=== PATIENT | male | born 1955 | race Caucasian/White ===

== ENCOUNTER 2023-02-18 12:48 | Outpatient (CLI) | payer MEDICARE, SELFPAY ==
[2023-02-18] MEDS: iohexol 350 mg/mL 500 mL Btl (per mL) IV (13:20)
--- NOTE | 2023-02-18 13:30 | CT_ITS ---
WS: [id number] CT NECK TECHNIQUE: Contrast-enhanced CT of the neck with coronal and sagittal reformatted images. CLINICAL INFORMATION: R49.0 - Dysphonia COMPARISON: None. DLP: 853.[address] scans at [facility] use at least one of these dose optimization techniques: automated e xposure control; mA and/or kV adjustment per patient size (includes targeted exams where dose is matc hed to clinical indication); or iterative reconstruction. FINDINGS: Mucosal thickening in the paranasal sinuses with scattered fluid. Mucosal thickening in the sphenoid sinuses. Cavernous carotid calcification. Mastoid air cells are well aerated. Partially visualized in tracranial contents appear normal. Normal posterior nasopharynx. Parotid glands are normal. Normal de [place] garza bmandibular glands. Normal [place] tonsils. No evidence of supraglottic or glottic mass. Normal para pharyngeal fat. Thyroid gland appears normal. Moderate chronic emphysematous changes in the lung apices. Prior sterno jefferson. Dense bilateral carotid bulb calcification. Palpable marker in the area of concern in the upper chest. Deep to the palpable marker is normal-appe aring subcutaneous soft tissue. The adjacent sternoclavicular joint demonstrates advanced arthritis a nd synovial thickening. No drainable fluid collection or abscess. Prior sternotomy. Moderate spondylitic changes cervical spine. Disc space narrowing worse at C5-C6. Slight anterolisthe sis C2 on C3. No cervical lymphadenopathy. IMPRESSION: 1. Normal salivary glands. 2. No cervical lymphadenopathy. 3. Dense carotid bulb calcification. This can be further evaluated with carotid ultrasound. 4. No suspicious lesions directly deep to the palpable marker LEFT chest. However, adjacent to the m arker is the sternoclavicular joint with advanced degenerative arthritis and synovial thickening. No drainable fluid collection or abscess. 5. No other acute findings.
--- NOTE | 2023-02-18 14:00 | CT_ITS ---
WS: [id number] CT chest w con* [id number] HISTORY: R05.3 - Chronic cough TECHNIQUE: Axial imaging performed through the thorax. Coronal and sagittal reformats are submitted. All CT [facility] use at least one of these dose optimization techniques: automated exposure control; mA and/or kV adjustment per patient size (includes targeted exams where dose is mat ched to clinical indication); or iterative reconstruction. CONTRAST: Omnipaque 350; 100 mL IV. DLP: 853.40 mGy.cm COMPARISON: None available. Marker is placed along the upper LEFT thorax, inferior neck at the area of interest as directed by th e patient. There is no directly underlying mass or abnormality identified. Just inferior and medial t o the marker are mild inflammatory changes and soft tissue thickening associated with the LEFT sterno clavicular joint. This is asymmetric to the RIGHT. Lungs and central airway: Centrilobular emphysema. Peripheral interstitial cysts. Not typical distrib ution for honeycomb associated with UIP. No pulmonary mass. No pneumonia. Pleura: Normal. No pleural effusion. Heart and pericardium: Normal size heart with no pericardial effusion. Prior median sternotomy. Mediastinum and libertad: No mediastinum or hilar adenopathy. Vessels: Mild atherosclerosis aorta. Normal sized pulmonary artery. Upper abdomen: Hepatic steatosis. Cholelithiasis. LEFT adrenal mass 2.3 x 2.1 cm. Mass has been prese nt since 2005 without significant change. Osseous structures: Mild increase in thoracic kyphosis. Mild anterior wedging of several midthoracic vertebral bodies. IMPRESSION: 1. Marker is placed along the upper LEFT thorax in the area of clinical concern. There is no directly underlying abnormality. 2. Just medial and inferior to the marker is an abnormal LEFT sternoclavicular joint. Probably due to arthropathy. Asymmetric to the RIGHT SC joint. 3. Chronic emphysema. 4. Hepatic steatosis and cholelithiasis. 5. Long-term stability LEFT adrenal mass, 2.3 x 2.1 cm.
== END 2023-02-18 12:49 | disposition home or self-care (01) ==
LOC: RAD 12:49
PROVIDERS: Family Provider Family Medicine; PCP Nurse Practitioner Family; Visit Provider Nurse Practitioner Family
DX: M89.8X8 Other specified disorders of bone, other site (principal); R05.3 Chronic cough; R49.0 Dysphonia; J43.9 Emphysema, unspecified; D35.02 Benign neoplasm of left adrenal gland
CPT/HCPCS: 70491; 71260; Q9967

== ENCOUNTER 2023-02-18 12:48 | Outpatient (CLI) | payer MEDICARE, SELFPAY | END 2023-02-18 12:49 | disposition home or self-care (01) | LOC: RAD 12:49 | PROVIDERS: Family Provider Family Medicine; PCP Nurse Practitioner Family; Visit Provider Internal Medicine | DX: E55.9 Vitamin D deficiency, unspecified (principal); M25.50 Pain in unspecified joint; E11.9 Type 2 diabetes mellitus without complications; I10 Essential (primary) hypertension; Z12.5 Encounter for screening for malignant neoplasm of prostate | CPT/HCPCS: 80053; 80061; 82043; 82306; 82607; 83036; 83735; 84443; 84550; 85025; 85651; 86038; 86140; 86200; 86431; G0103 ==

== ENCOUNTER 2023-03-01 10:42 | Outpatient (CLI) | payer MEDICARE, SELFPAY ==
--- NOTE | 2023-03-01 11:15 | USCV_ITS ---
Isis Cristiana Age: 67 Gender: M : 1955 Exam Date: 03/01/2023 10:56 Ordering Phys: Violet Noel BULB PLANTER BULB PLANTER Technologist: CT Exam [place] [facility] [place] Indication: syncope,pad Risk Factors: Previous Vascular Surgery: Right Brachial BP: / Left Brachial BP: / Right Left Velocity (cm/s) Spectral Plaque Velocity (cm/s) Spectral Plaque Syst/Diast Broadening Syst/Diast Broadening 75.40/ 17.60 Prox CCA 73.90 / 16.50 78.85/ 17.60 Mid CCA 76.90 / 19.20 68.05/ 16.30 Distal CCA 68.40 / 16.30 62.15/ 16.05 Prox ICA 71.60 / 17.40 65.40/ 19.80 Mid ICA 46.20 / 18.00 49.00/ 14.80 Distal ICA 45.10 / 19.40 123.65 ECA 174.20 0.91 ICA/CCA 0.93 Antegrade Vertebral Antegrade 38.80/ 11.80 cm/s 34.20/ 12.80 cm/s Bi Subclavian Bi 95.20 144.5 0 CONCLUSIONS Right ICA stenosis <50%. Moderate atheromatous plaque right carotid bulb/ICA. Left ICA stenosis <50%. Mild atheromatous plaque left carotid bulb/ICA. Intimal thickening in the common carotid arteries and internal carotid arteries bilaterally. Normal antegrade Doppler flow noted in the left vertebral artery. Normal antegrade Doppler flow noted in the right vertebral artery. Kennedy Sanders MD (Electronically Signed) Final Date: 01 March 2023 15:50 S
== END 2023-03-01 10:43 | disposition home or self-care (01) ==
LOC: RAD 10:42
PROVIDERS: Family Provider Family Medicine; PCP Nurse Practitioner Family; Visit Provider Nurse Practitioner Family
DX: R09.89 Other specified symptoms and signs involving the circulatory and respiratory systems (principal); R55 Syncope and collapse; I77.9 Disorder of arteries and arterioles, unspecified; I65.23 Occlusion and stenosis of bilateral carotid arteries; I73.9 Peripheral vascular disease, unspecified
CPT/HCPCS: 93880

== ENCOUNTER 2023-03-17 09:45 | Outpatient (CLI) | payer MEDICARE, SELFPAY ==
--- NOTE | 2023-03-17 09:52 | XR_ITS ---
WS: [email or web address] Left shoulder, 2 views, 03/17/2023 Clinical Data: M25.511 - Pain in left shoulder Comparison: None. Findings: No fractures or dislocations are seen. The AC joint shows moderate osteoarthritis with narrowing and periarticular calcification. There is minimal irregularity of the lesser tuberosity and adjacent yoly oid articular surface. The adjacent left clavicle, left scapula and ribs are normal. The soft tissues are unremarkable. 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
--- NOTE | 2023-03-17 09:52 | XR_ITS ---
WS: [email or web address] Left hip, AP and frog-leg views, 03/17/2023 Clinical Data: M25.552 - Pain in left hip Comparison: None. Findings: The left hip arthroplasty is in good position. No periprosthetic fractures or loosening is seen. Ther e are vascular calcifications. Impression: Left hip arthroplasty.
--- NOTE | 2023-03-17 09:52 | XR_ITS ---
WS: [email or web address] Left knee, 3 views, 03/17/2023 Clinical Data: M25.562 - Pain in left knee Comparison: None. Findings: No fractures or dislocations are seen. Medial joint compartment narrowing is present with spurring of the medial femoral condyle and medial tibial plateau. There is a spur of the lateral femoral condyle . The posterior patella shows spurring. there are vascular calcifications . Impression: Mild osteoarthritis of the left knee Kellgren-Red Classification: grade 2 (minimal): definite osteophytes and possible joint space na rrowing
--- NOTE | 2023-03-17 09:52 | XR_ITS ---
WS: [email or web address] Right shoulder, 2 views, 03/17/2023 Clinical Data: M25.511 - Pain in right shoulder Comparison: None. Findings: No fractures or dislocations are seen. There is osteoarthritic narrowing and spurring of the right AC joint. There is irregularity of the right glenohumeral joint involving the greater tuberosity lesser tuberosity and glenoid rim. The adjacent right clavicle, right scapula and ribs are normal. The soft tissues are unremarkable. 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
== END 2023-03-17 09:46 | disposition home or self-care (01) ==
PROVIDERS: Family Provider Family Medicine; PCP Nurse Practitioner Family; Visit Provider Nurse Practitioner Family
DX: M19.012 Primary osteoarthritis, left shoulder (principal); M19.011 Primary osteoarthritis, right shoulder; M17.12 Unilateral primary osteoarthritis, left knee; M25.552 Pain in left hip; G89.29 Other chronic pain; M25.511 Pain in right shoulder; M25.512 Pain in left shoulder; Z96.642 Presence of left artificial hip joint
CPT/HCPCS: 73030; 73502; 73562

== ENCOUNTER → 2023-04-19 09:35 | Outpatient (BNVA) | payer MEDICARE, SELFPAY | PROVIDERS: Family Provider Family Medicine; PCP Nurse Practitioner Family; Referring Provider Nurse Practitioner Family; Visit Provider Physician Assistant | DX: M19.011 Primary osteoarthritis, right shoulder (principal); M19.012 Primary osteoarthritis, left shoulder; M75.41 Impingement syndrome of right shoulder; M75.42 Impingement syndrome of left shoulder | CPT/HCPCS: 20610; 99203; J3301 ==

== ENCOUNTER → 2023-06-13 09:45 | Outpatient (BNVA) | payer MEDICARE, SELFPAY | PROVIDERS: Family Provider Family Medicine; PCP Nurse Practitioner Family; Visit Provider Nurse Practitioner Family | DX: E11.9 Type 2 diabetes mellitus without complications (principal); E55.9 Vitamin D deficiency, unspecified | CPT/HCPCS: 80053; 80061; 81000; 82306; 82607; 83036; 83735; 84443; 85025 ==

== ENCOUNTER → 2023-06-14 09:49 | Outpatient (BNVA) | payer MEDICARE, SELFPAY | PROVIDERS: Family Provider Family Medicine; PCP Nurse Practitioner Family; Visit Provider Physician Assistant | DX: M19.011 Primary osteoarthritis, right shoulder; M19.012 Primary osteoarthritis, left shoulder; M75.42 Impingement syndrome of left shoulder | CPT/HCPCS: 99213 ==

== ENCOUNTER 2023-07-18 08:46 | Outpatient (CLI) | payer MEDICARE, SELFPAY ==
--- NOTE | 2023-07-18 09:30 | MR_ITS ---
WS: [email or web address] MRI LEFT SHOULDER NONCONTRAST TECHNIQUE: Sagittal T2, coronal T1, T2 and proton density imaging. Axial gradient PDE imaging. CLINICAL INFORMATION: left shoulder injury and pain COMPARISON: None. FINDINGS: Advanced degenerative arthritis of the AC joint with fluid and edema. AC joint effusion. Loss of the subacromial space. Small amount of subacromial subdeltoid fluid. Complete high-grade tear of the dist al supraspinatus with retraction measuring 1.8 cm. Associated tear involving the anterior fibers of t he infraspinatus. Chronic thinning of the supraspinatus and infraspinatus. Teres minor appears intact. Chronic thinning and tendinopathy involving the subscapularis tendon. Tin y remnant biceps tendon in the bicipital groove likely due to chronic partial tear. Tiny intra-articu lar biceps tendon difficult to visualize likely due to chronic tear. Advanced degenerative narrowing of the glenohumeral articulation with degenerative fraying of the glenoid labrum. Small joint effusio n. IMPRESSION: 1. Advanced degenerative arthritis AC joint with joint effusion and loss of the subacromial space. I mpingement distal supraspinatus. 2. High-grade tear with retraction involving the supraspinatus with associated tear involving the an terior fibers of the infraspinatus. Chronic thinning of the supraspinatus and infraspinatus. 3. Chronic thinning of the subscapularis tendon with tendinopathy. 4. Tiny remnant biceps tendon in the bicipital groove likely due to chronic tear. 5. Intra-articular biceps tendon poorly visualized likely chronically torn. 6. Advanced degenerative narrowing of the glenohumeral to collation with small joint effusion.
== END 2023-07-18 08:47 | disposition home or self-care (01) ==
LOC: RAD 08:47
PROVIDERS: Family Provider Family Medicine; PCP Nurse Practitioner Family; Visit Provider Physician Assistant
DX: S49.92XA Unspecified injury of left shoulder and upper arm, initial encounter (principal); M19.011 Primary osteoarthritis, right shoulder; M19.012 Primary osteoarthritis, left shoulder; M75.102 Unspecified rotator cuff tear or rupture of left shoulder, not specified as traumatic
CPT/HCPCS: 73221

== ENCOUNTER 2023-07-26 16:04 | Emergency (ER) | payer MEDICARE, SELFPAY ==
[2023-07-26 16:09] VITALS: BP 149/73; PULSE 81; RESP 16; TEMP 36.8; O2SAT 97
--- NOTE | 2023-07-26 17:19 | ED_ITS ---
Documented by User: [email or web address] Pineda 07/26/23 18:14 HPI - Male Genitourinary 2 General: Chief complaint: Urogenital-Male Stated complaint: blood in urine Time Seen by Provider: 07/26/23 17:10 Source: patient Mode of arrival: ambulatory Limitations: no limitations History of Present Illness: This patient is a 68-year-old male presenting to the emergency department complaining of penile pain onset just prior to arrival. Patient notes he was working outside and knelt down to pee, when he pulled out his penis he notes a sudden onset of pain to the distal urethra, which was subsequently followed by a burst of bloody urine after pushing to urinate. He states that the pain was severe at the time, and is still irritated but is much less severe. He denies history of recent kidney stones but states that 1 time in the past he might have been diagnosed with renal stones. He is denying any fever, nausea or vomiting, abdominal pain, flank pain, or any other symptoms at this time. He states that he has urinated twice since and it has been painless and without gross blood. MD Complaint: dysuria and other (Penis pain, hematuria) Onset (ago): hour(s) Duration: now resolved Location: penis Quality: sharp and stabbing Associated symptoms: Reports dysuria and hematuria; Deny nausea or vomiting Related Data: Sexually active: Yes Review of Systems 2 General: Reports: 10 or more systems reviewed and unremarkable except in HPI and below Const: Denies: fever(s), chills, change in appetite, change in weight or diaphoresis ENMT: Denies: throat pain or hoarseness Card: Denies: chest pain, palpitations or lightheadedness Resp: Denies: dyspnea, productive cough or wheezing GI: Denies: abdominal pain, nausea, vomiting, diarrhea, constipation, bloating, change in stool character or hematochezia : Reports: dysuria, hematuria and genital pain; Denies: flank pain, difficulty urinating, urinary frequency or urinary urgency Musc: Denies: neck pain or back pain Skin/Breast: Denies: rash or new lesions Neuro: Denies: headache(s) or dizziness PFSH ED 2 PFSH: Medical History Fatty liver Vitamin D deficiency History of melanoma 2022 Arthropathy of left hip Obstructive sleep apnea Hypertension Type 2 diabetes mellitus Surgical History History of colonoscopy 04/07/21 6mm polyp and diverticulosis S/P triple vessel bypass 2016 Family History Grandmother Rheumatoid arthritis Mother Rheumatoid arthritis Father Lung cancer Social History Smoking and tobacco/nicotine status: current every day tobacco/nicotine user cigarettes Packs smoked per day: 0.5 Years cigarettes smoked: 50 Alcohol intake: current Alcohol intake frequency: 3 or more drinks per day Alcohol type: beer Substance/Drug Use: never Adopted: No Lives independently: Yes Household members: spouse Marital status: Physical Exam 2 Const: COMMON NORMALS: no acute distress, average body habitus, patient oriented x3, no limitations, healthy appearing, alert and well nourished G ENERAL APPEARANCE: cooperative and comfortable ORIENTATION/CONSCIOUSNESS: Yes awake HENMT: COMMON NORMALS: normocephalic, atraumatic, hearing grossly normal bilaterally, external ears normal, Normal external nose present, Normal nasal mucous membranes and turbinates present and moist oral mucous membranes HEAD & SCALP: normocephalic and atraumatic NOSE: Normal external nose present and Normal nasal mucous membranes and turbinates present EXTERNAL EAR: Yes external ears normal Eye: COMMON NORMALS: Equal, round and reactive pupils present, EOMs intact bilaterally, conjunctivae normal and normal visual holcomb by confrontation C ONJUNCTIVA: Yes conjunctivae normal PUPIL: Yes Equal, round and reactive pupils present Neck/C-Spine: COMMON NORMALS: full ROM, supple, no meningeal signs and no JVD Resp: COMMON NORMALS: normal respiratory effort, No retractions, No use of accessory muscles and clear to auscultation bilaterally AUSCULTATION: clear to auscultation bilaterally, no crackles, no rales, no rhonchi and no wheezes Cardio: COMMON NORMALS: no JVD, regular rate, regular rhythm, S1 normal heart sound present, S2 normal heart sound present, No gallops present (Cardio), No clicks present (Cardio), No murmurs present (Cardio), No rub (Cardio) and Peripheral pulses 2+ throughout RATE: regular rate RHYTHM: regular rhythm HEART SOUNDS: S1 normal heart sound present and S2 normal heart sound present PERIPHERAL PULSES: Peripheral pulses 2+ throughout GI: COMMON NORMALS: Normal to inspection, nondistended, normoactive bowel sounds present, Soft to palpation, non-tender, No hepatosplenomegaly present and no masses AUSCULTATION: Yes normoactive bowel sounds PALPATION: Yes Soft to palpation, No Guarding due to palpation present (GI), No Rigid due to palpation and Yes No hepatosplenomegaly present RECTAL EXAM: Yes deferred : COMMON NORMALS: Yes no CVA tenderness BLADDER/KIDNEY EXAM: Yes no CVA tenderness PENIS: normal penis, circumcised and other (No abnormal findings of head of penis or urethra) Back/Pelvis: COMMON NORMALS: no CVA tenderness Extremity: COMMON NORMALS: normal to inspection and full ROM Neuro: COMMON NORMALS: patient oriented x3, moves all extremities, no focal motor deficits and no sensory deficits noted SENSORIUM/ORIENTATION: Yes alert MENINGEAL SIGNS: Yes no meningeal signs Psych: COMMON NORMALS: mental status grossly normal, cooperative and speech normal SPEECH: Yes normal speech Skin: COMMON NORMALS: no rashes or lesions noted GENERAL SKIN EXAM: no rashes or lesions noted Course 2 Vital Signs: Vital signs: Vital Signs Temperature 98.3 F 07/26/23 16:09 Pulse Rate 81 07/26/23 16:09 Respiratory Rate 16 07/26/23 16:09 Blood Pressure 149/73 07/26/23 16:09 Pulse Oximetry 97 07/26/23 16:09 [facility] - Male Medical Decision Making This patient was seen and evaluated due to 1 episode of hematuria, dysuria, as well as severe distal urethral pain. Patient had denied to me a history of kidney stone passage, however believes that 1 time in the past he was diagnosed with renal stones. His vitals on arrival were normal. He had stated that he has voided twice since the incident with no pain or blood. He did state he was concerned because normally he does not feel pain due to unspecified reasons. Basic lab work was all negative. His urine also had no signs of infection or blood. I believe that patient's symptoms most likely due to passage of a kidney stone, and I see no further need for evaluation at this time. However I did give strict return precautions and signs and symptoms to watch out for that would warrant a return to the ED. Patient agrees with this plan and will be discharged home. Lab Data I reviewed the patient's lab results. 07/26/23 17:09 07/26/23 17:09 Laboratory Results WBC 6.21 10^3/uL (3.29-11.43) 07/26/23 17:09 RBC 4.99 10^6/uL (3.85-5.65) 07/26/23 17:09 Hgb 15.70 g/dL (11.27-16.99) 07/26/23 17:09 Hct 46.0 % (37-53) 07/26/23 17:09 MCV 92.2 fl (82-101) 07/26/23 17:09 MCH 31.5 pg (27-33) 07/26/23 17:09 MCHC 34.1 g/dL (30-55) 07/26/23 17:09 RDW 13.9 % (12.1-15.1) 07/26/23 17:09 Plt Count 147 10^3/cmm (157-399) L 07/26/23 17:09 MPV 12.3 fL (7.4-10.4) H 07/26/23 17:09 Neut % (Auto) 66.1 % 07/26/23 17:09 Lymph % (Auto) 18.0 % 07/26/23 17:09 [place] % (Auto) 9.0 % 07/26/23 17:09 Eos % (Auto) 6.1 % 07/26/23 17:09 Baso % (Auto) 0.6 % 07/26/23 17:09 Neut # (Auto) 4.10 10^3/uL (1.8-7.7) 07/26/23 17:09 Lymph # (Auto) 1.1 10^3/uL (0.8-4.8) 07/26/23 17:09 [place] # (Auto) 0.6 10^3/uL (0.2-0.9) 07/26/23 17:09 Eos # (Auto) 0.4 10^3/uL (0.0-0.8) 07/26/23 17:09 Baso # (Auto) 0.0 10^3/uL (0.0-0.1) 07/26/23 17:09 Nucleated RBC % (auto) 0 % 07/26/23 17:09 Nucleated RBCs # 0.0 /100WBC 07/26/23 17:09 PT 12.30 SECONDS (12.1-14.9) 07/26/23 17:09 INR 0.89 (0.8-1.2) 07/26/23 17:09 Sodium 138 mmol/L (136-145) 07/26/23 17:09 Potassium 4.1 mmol/L (3.5-5.1) 07/26/23 17:09 Chloride 104 mmol/L (98-107) 07/26/23 17:09 Carbon Dioxide 23 mmol/L (22-29) 07/26/23 17:09 Anion Gap 15.1 (5-19) 07/26/23 17:09 BUN 16 mg/dL (8-23) 07/26/23 17:09 Creatinine 0.8 mg/dL (0.7-1.2) 07/26/23 17:09 GFR Calculation 95.6 mL/min (90-130) 07/26/23 17:09 Glucose 197 mg/dL (65-115) H 07/26/23 17:09 Calculated Osmolality 293 mOsm/kg (285-295) 07/26/23 17:09 Calcium 9.4 mg/dL (8.5-10.5) 07/26/23 17:09 Total Bilirubin 0.3 mg/dL (0.15-1.2) 07/26/23 17:09 AST 15 U/L (0-40) 07/26/23 17:09 ALT 24 U/L (0-41) 07/26/23 17:09 Alkaline Phosphatase 85 U/L (40-130) 07/26/23 17:09 Total Protein 7.1 g/dL (6.6-8.7) 07/26/23 17:09 Albumin 4.2 g/dL (3.5-5.2) 07/26/23 17:09 Globulin 2.9 g/dL (1.3-4.6) 07/26/23 17:09 Urine Color Straw (Yellow) 07/26/23 17:37 Urine Appearance Clear (CLEAR) 07/26/23 17:37 Urine pH 6 (5-7) 07/26/23 17:37 Ur Specific [place] 1.015 (1.005-1.030) 07/26/23 17:37 Urine Protein Neg (Negative) 07/26/23 17:37 Urine Glucose (UA) 2+ (Normal) H 07/26/23 17:37 Urine Ketones Negative (Negative) 07/26/23 17:37 Urine Blood Neg (Negative) 07/26/23 17:37 Urine Nitrate Negative (Negative) 07/26/23 17:37 Urine Bilirubin Neg (Negative) 07/26/23 17:37 Urine Urobilinogen Neg mg/dL (Negative) 07/26/23 17:37 Ur Leukocyte Esterase Negative (Negative) 07/26/23 17:37 No radiology studies performed this visit Discharge Plan Discharge Patient Disposition: Home Clinical Impression: Urethritis, unspecified Condition: Stable Prescriptions: No Action aspirin [Adult Aspirin Regimen] 81 mg tablet,delayed release (DR/EC) 81 mg PO DAILY carvedilol 3.125 mg tablet 3.125 mg PO BID Qty: 180 3RF Rx Instructions: must administer with a meal/food glimepiride 4 mg tablet 4 mg PO BID Qty: 180 3RF lisinopril 10 mg tablet 10 mg PO DAILY Qty: 90 3RF Januvia 100 mg tablet 100 mg PO DAILY Qty: 90 3RF diclofenac sodium 75 mg tablet,delayed release (DR/EC) 75 mg PO BID PRN (Reason: pain) Qty: 180 1RF triamcinolone acetonide 0.1 % cream 1 applic topical BID 14 Days Qty: 80 0RF ketoconazole 2 % cream 1 applic topical BID 14 Days Qty: 60 0RF escitalopram oxalate [Lexapro] 10 mg tablet 10 mg PO DAILY Qty: 30 0RF montelukast 10 mg tablet 10 mg PO DAILY Qty: 30 0RF Discharge Orders: Discharge ED (Routine); Ordered 07/26/23 Ordered By: Anibal Huddleston Referrals: Violet Noel FNP [Primary Care Provider] - Discharge Diet: Usual diet Discharge Activity: Resume usual activity Patient Instructions: Kidney Stones (ED), Nonspecific Urethritis in Men (ED) Activity Restrictions/Additional Instructions: Please monitor for any new or concerning symptoms you may have, such as recurrent blood in urine, flank pain, nausea or vomiting, or fevers. Otherwise, you may follow-up with your primary care this week. Plenty of fluids. Coding Level of Care Code ED Owner Spa Director for [facility] Documented by User: Niranjan Gil DO 07/27/23 06:12 HPI - Male Genitourinary 2 General: Chief complaint: Urogenital-Male Stated complaint: blood in urine Time Seen by Provider: 07/26/23 17:10 PFSH ED 2 PFSH: Medical History Fatty liver Vitamin D deficiency History of melanoma 2022 Arthropathy of left hip Obstructive sleep apnea Hypertension Type 2 diabetes mellitus Surgical History History of colonoscopy 04/07/21 6mm polyp and diverticulosis S/P triple vessel bypass 2016 Family History Grandmother Rheumatoid arthritis Mother Rheumatoid arthritis Father Lung cancer Social History Smoking and tobacco/nicotine status: current every day tobacco/nicotine user cigarettes Packs smoked per day: 0.5 Years cigarettes smoked: 50 Alcohol intake: current Alcohol intake frequency: 3 or more drinks per day Alcohol type: beer Substance/Drug Use: never Adopted: No Lives independently: Yes Household members: spouse Marital status: Course 2 Vital Signs: Vital signs: Vital Signs Temperature 98.3 F 07/26/23 16:09 Pulse Rate 81 07/26/23 16:09 Respiratory Rate 16 07/26/23 16:09 Blood Pressure 149/73 07/26/23 16:09 Pulse Oximetry 97 07/26/23 16:09 MDM - Male Medical Decision Making This patient was seen and evaluated due to 1 episode of hematuria, dysuria, as well as severe distal urethral pain. Patient had denied to me a history of kidney stone passage, however believes that 1 time in the past he was diagnosed with renal stones. His vitals on arrival were normal. He had stated that he has voided twice since the incident with no pain or blood. He did state he was concerned because normally he does not feel pain due to unspecified reasons. Basic lab work was all negative. His urine also had no signs of infection or blood. I believe that patient's symptoms most likely due to passage of a kidney stone, and I see no further need for evaluation at this time. However I did give strict return precautions and signs and symptoms to watch out for that would warrant a return to the ED. Patient agrees with this plan and will be discharged home. Chart reviewed Lab Data 07/26/23 17:09 07/26/23 17:09 Laboratory Results WBC 6.21 10^3/uL (3.29-11.43) 07/26/23 17:09 RBC 4.99 10^6/uL (3.85-5.65) 07/26/23 17:09 Hgb 15.70 g/dL (11.27-16.99) 07/26/23 17:09 Hct 46.0 % (37-53) 07/26/23 17:09 MCV 92.2 fl (82-101) 07/26/23 17:09 MCH 31.5 pg (27-33) 07/26/23 17:09 MCHC 34.1 g/dL (30-55) 07/26/23 17:09 RDW 13.9 % (12.1-15.1) 07/26/23 17:09 Plt Count 147 10^3/cmm (157-399) L 07/26/23 17:09 MPV 12.3 fL (7.4-10.4) H 07/26/23 17:09 Neut % (Auto) 66.1 % 07/26/23 17:09 Lymph % (Auto) 18.0 % 07/26/23 17:09 [place] % (Auto) 9.0 % 07/26/23 17:09 Eos % (Auto) 6.1 % 07/26/23 17:09 Baso % (Auto) 0.6 % 07/26/23 17:09 Neut # (Auto) 4.10 10^3/uL (1.8-7.7) 07/26/23 17:09 Lymph # (Auto) 1.1 10^3/uL (0.8-4.8) 07/26/23 17:09 [place] # (Auto) 0.6 10^3/uL (0.2-0.9) 07/26/23 17:09 Eos # (Auto) 0.4 10^3/uL (0.0-0.8) 07/26/23 17:09 Baso # (Auto) 0.0 10^3/uL (0.0-0.1) 07/26/23 17:09 Nucleated RBC % (auto) 0 % 07/26/23 17:09 Nucleated RBCs # 0.0 /100WBC 07/26/23 17:09 PT 12.30 SECONDS (12.1-14.9) 07/26/23 17:09 INR 0.89 (0.8-1.2) 07/26/23 17:09 Sodium 138 mmol/L (136-145) 07/26/23 17:09 Potassium 4.1 mmol/L (3.5-5.1) 07/26/23 17:09 Chloride 104 mmol/L (98-107) 07/26/23 17:09 Carbon Dioxide 23 mmol/L (22-29) 07/26/23 17:09 Anion Gap 15.1 (5-19) 07/26/23 17:09 BUN 16 mg/dL (8-23) 07/26/23 17:09 Creatinine 0.8 mg/dL (0.7-1.2) 07/26/23 17:09 GFR Calculation 95.6 mL/min (90-130) 07/26/23 17:09 Glucose 197 mg/dL (65-115) H 07/26/23 17:09 Calculated Osmolality 293 mOsm/kg (285-295) 07/26/23 17:09 Calcium 9.4 mg/dL (8.5-10.5) 07/26/23 17:09 Total Bilirubin 0.3 mg/dL (0.15-1.2) 07/26/23 17:09 AST 15 U/L (0-40) 07/26/23 17:09 ALT 24 U/L (0-41) 07/26/23 17:09 Alkaline Phosphatase 85 U/L (40-130) 07/26/23 17:09 Total Protein 7.1 g/dL (6.6-8.7) 07/26/23 17:09 Albumin 4.2 g/dL (3.5-5.2) 07/26/23 17:09 Globulin 2.9 g/dL (1.3-4.6) 07/26/23 17:09 Urine Color Straw (Yellow) 07/26/23 17:37 Urine Appearance Clear (CLEAR) 07/26/23 17:37 Urine pH 6 (5-7) 07/26/23 17:37 Ur Specific [place] 1.015 (1.005-1.030) 07/26/23 17:37 Urine Protein Neg (Negative) 07/26/23 17:37 Urine Glucose (UA) 2+ (Normal) H 07/26/23 17:37 Urine Ketones Negative (Negative) 07/26/23 17:37 Urine Blood Neg (Negative) 07/26/23 17:37 Urine Nitrate Negative (Negative) 07/26/23 17:37 Urine Bilirubin Neg (Negative) 07/26/23 17:37 Urine Urobilinogen Neg mg/dL (Negative) 07/26/23 17:37 Ur Leukocyte Esterase Negative (Negative) 07/26/23 17:37 Discharge Plan Discharge Patient Disposition: Home Clinical Impression: Urethritis, unspecified Condition: Stable Prescriptions: No Action aspirin [Adult Aspirin Regimen] 81 mg tablet,delayed release (DR/EC) 81 mg PO DAILY carvedilol 3.125 mg tablet 3.125 mg PO BID Qty: 180 3RF Rx Instructions: must administer with a meal/food glimepiride 4 mg tablet 4 mg PO BID Qty: 180 3RF lisinopril 10 mg tablet 10 mg PO DAILY Qty: 90 3RF Januvia 100 mg tablet 100 mg PO DAILY Qty: 90 3RF diclofenac sodium 75 mg tablet,delayed release (DR/EC) 75 mg PO BID PRN (Reason: pain) Qty: 180 1RF triamcinolone acetonide 0.1 % cream 1 applic topical BID 14 Days Qty: 80 0RF ketoconazole 2 % cream 1 applic topical BID 14 Days Qty: 60 0RF escitalopram oxalate [Lexapro] 10 mg tablet 10 mg PO DAILY Qty: 30 0RF montelukast 10 mg tablet 10 mg PO DAILY Qty: 30 0RF Discharge Orders: Discharge ED (Routine); Ordered 04/16/24 Ordered By: Anibal Huddleston Referrals: Violet Noel FNP [Primary Care Provider] - Discharge Diet: Usual diet Discharge Activity: Resume usual activity Patient Instructions: Kidney Stones (ED), Nonspecific Urethritis in Men (ED) Activity Restrictions/Additional Instructions: Please monitor for any new or concerning symptoms you may have, such as recurrent blood in urine, flank pain, nausea or vomiting, or fevers. Otherwise, you may follow-up with your primary care this week. Plenty of fluids. Coding Level of Care Code ED Owner Spa Director for [facility]
[2023-07-26 17:20] LABS: Basophils % 0.6 %; Eosinophils # 0.4 10^3/uL (0.0-0.8); Eosinophils % 6.1 %; Lymphocytes # 1.1 10^3/uL (0.8-4.8); Mean Corpuscular HGB Conc 34.1 g/dL (30-55); Mean Corpuscular Hemoglobin 31.5 pg (27-33); Mean Corpuscular Volume 92.2 fl (82-101); Mean Platelet Volume 12.3 fL (7.4-10.4); Monocytes # 0.6 10^3/uL (0.2-0.9); Neutrophils % 66.1 %; Nucleated Red Blood Cells % 0 %; Platelet Count 147 10^3/cmm (157-399); Red Blood Count 4.99 10^6/uL (3.85-5.65); Red Cell Distribution Width 13.9 % (12.1-15.1); White Blood Count 6.21 10^3/uL (3.29-11.43)
[2023-07-26 17:38] LABS: Alanine Aminotransferase 24 U/L (0-41); Albumin Level 4.2 g/dL (3.5-5.2); Alkaline Phosphatase 85 U/L (40-130); Anion Gap 15.1 (5-19); Aspartate Amino Transferase 15 U/L (0-40); Blood Urea Nitrogen 16 mg/dL (8-23); Calcium 9.4 mg/dL (8.5-10.5); Carbon Dioxide 23 mmol/L (22-29); Chloride 104 mmol/L (98-107); Creatinine Clr Calc Pharmacy 89.1231; Globulin 2.9 g/dL (1.3-4.6); Glomerular Filtration Rate 95.6 mL/min (90-130); Glucose 197 mg/dL (65-115); Osmolality Calculated 293 mOsm/kg (285-295); Potassium 4.1 mmol/L (3.5-5.1); Sodium 138 mmol/L (136-145); Total Bilirubin 0.3 mg/dL (0.15-1.2); Total Protein 7.1 g/dL (6.6-8.7)
[2023-07-26 17:39] LABS: INR 0.89 (0.8-1.2)
[2023-07-26 17:50] LABS: Add Urine Microscopic? NO; Charge for UA Resulting for Rev
[2023-07-26 17:58] LABS: Bilirubin Urine Neg (Negative); Blood Urine Neg (Negative); Glucose Urine UA 2+ (Normal); Ketones Urine Negative (Negative); Leukocyte Esterase Urine Negative (Negative); Nitrate Urine Negative (Negative); Protein Urine Neg (Negative); Specific Gravity, Urine 1.015 (1.005-1.030); Urine Appearance Clear (CLEAR); Urine Color Straw (Yellow); Urobilinogen Urine Neg (Negative); pH Urine 6 (5-7)
== END 2023-07-26 18:16 | disposition home or self-care (01) ==
PROVIDERS: Emergency Medicine; Emergency Provider Physician Assistant; PCP Nurse Practitioner Family
DX: N34.2 Other urethritis (principal); Z79.82 Long term (current) use of aspirin; Z79.84 Long term (current) use of oral hypoglycemic drugs; I10 Essential (primary) hypertension; E11.9 Type 2 diabetes mellitus without complications; F17.210 Nicotine dependence, cigarettes, uncomplicated
CPT/HCPCS: 36415; 80053; 81003; 85025; 85610; 99283

== ENCOUNTER → 2023-08-23 07:47 | Outpatient (BNVA) | payer MEDICARE, SELFPAY | PROVIDERS: PCP Nurse Practitioner Family; Visit Provider Physician Assistant | DX: M75.102 Unspecified rotator cuff tear or rupture of left shoulder, not specified as traumatic (principal); M19.012 Primary osteoarthritis, left shoulder | CPT/HCPCS: 99214 ==

== ENCOUNTER 2023-09-19 07:37 | Outpatient (CLI) | payer MEDICARE, SELFPAY ==
--- NOTE | 2023-09-19 08:15 | US_ITS ---
WS: [id number] RIGHT UPPER QUADRANT ULTRASOUND HISTORY: R10.11 - Right upper quadrant pain COMPARISON: None available. Liver: 18.9 cm in length. Enlarged liver which is very echogenic and attenuated. No mass identified. Surface is slightly nodular and irregular. Portal Vein: Normal hepatopetal flow with monophasic waveform. Gallbladder: Normally distended gallbladder with stones. Several stones are present in the gallbladde r. No wall thickening or pericholecystic fluid. CBD: 0.4 cm Pancreas: Completely obscured. Right kidney: 9.9 cm in length. Normal size and echogenicity. No hydronephrosis or mass. Aorta and IVC: Poorly visualized. No ascites. US/US gall bladder [id number] IMPRESSION: 1. Technically limited RIGHT upper quadrant ultrasound. 2. Cholelithiasis without acute cholecystitis. 3. No bile duct dilatation. 4. Enlarged liver with diffuse hepatic steatosis.
== END 2023-09-19 07:38 | disposition home or self-care (01) ==
LOC: RAD 07:37
PROVIDERS: PCP Nurse Practitioner Family; Visit Provider Nurse Practitioner Family
DX: K80.20 Calculus of gallbladder without cholecystitis without obstruction (principal); R16.0 Hepatomegaly, not elsewhere classified
CPT/HCPCS: 76705; 87338

== ENCOUNTER → 2023-10-03 09:45 | Outpatient (BNVA) | payer MEDICARE, SELFPAY | PROVIDERS: PCP Nurse Practitioner Family; Visit Provider Nurse Practitioner Family | DX: R10.11 Right upper quadrant pain (principal) | CPT/HCPCS: 80053; 85025 ==

== ENCOUNTER 2023-10-10 06:00 | Outpatient (CLI) | payer MEDICARE, SELFPAY ==
--- NOTE | 2023-10-10 06:00 | US_ITS ---
WS: [id number] RIGHT UPPER QUADRANT ULTRASOUND HISTORY: R10.11 - Right upper quadrant pain COMPARISON: 09/19/2023 Liver: 15.0 cm in length. Normal size liver with coarse echotexture. Limited windows for imaging due to body habitus. No mass identified but the entire liver is not visualized. Common bile duct is jasmin l. Portal Vein: Normal hepatopetal flow with monophasic waveform. Gallbladder: No cholelithiasis. No acute cholecystitis. CBD: 0.4 cm Pancreas: Not visualized. Right kidney: 11.0 cm in length. Normal size and echogenicity. No hydronephrosis or mass. Aorta and IVC: Unremarkable abdominal aorta and IVC. No ascites. US/US gall bladder [id number] IMPRESSION: 1. Cholelithiasis without acute cholecystitis. 2. Nonvisualization of the pancreas. 3. Normal size liver with hepatic steatosis. Entire liver is not well visualiz ed due to body habitus.
== END 2023-10-10 06:03 | disposition home or self-care (01) ==
PROVIDERS: PCP Nurse Practitioner Family; Visit Provider Nurse Practitioner Family
DX: K80.20 Calculus of gallbladder without cholecystitis without obstruction (principal); K76.0 Fatty (change of) liver, not elsewhere classified; R10.11 Right upper quadrant pain
CPT/HCPCS: 76705; 80053; 85025

== ENCOUNTER → 2023-10-14 07:43 | Outpatient (BNVA) | payer MEDICARE, SELFPAY | PROVIDERS: PCP Nurse Practitioner Family; Visit Provider Surgery | DX: K82.9 Disease of gallbladder, unspecified (principal); R10.11 Right upper quadrant pain; K76.0 Fatty (change of) liver, not elsewhere classified; R10.9 Unspecified abdominal pain; G89.29 Other chronic pain | CPT/HCPCS: 99204 ==

== ENCOUNTER 2023-11-04 14:10 | Emergency (ER) | payer MEDICARE, SELFPAY ==
[2023-11-04 14:15] VITALS: BP 138/81; PULSE 86; RESP 15; TEMP 36.7; O2SAT 96
--- NOTE | 2023-11-04 14:22 | ED_ITS ---
HPI - Wound/Laceration General: Chief Complaint: Wound/Laceration Stated Complaint: cut fingers Time Seen by Provider: 11/04/23 14:19 Source: patient Mode of arrival: ambulatory Limitations: no limitations History of Present Illness: Patient is a nice 68-year-old male who presents to ED today for evaluation of lacerations to his left fourth and fifth fingers that he sustained just prior to arrival after accidentally getting them caught on a portion of a garage door. He is a diabetic. Last tetanus is unknown. Onset (ago): minute(s) Extremity Location: Left: hand Place: home Patient tetanus UTD: No Context: accidental Associated symptoms: Reports no associated symptoms Treatments prior to arrival: bandage Review of Systems Musc: Reports: extremity pain (L 4-5 fingers) Skin/Breast: Reports: other (lacerations L fingers) Neuro: Denies: numbness in extremities or sensory changes [facility] ED PFSH: Medical History Enrolled in chronic care management Fatty liver Vitamin D deficiency History of melanoma 2022 Arthropathy of left hip Obstructive sleep apnea Hypertension Type 2 diabetes mellitus Surgical History History of colonoscopy 04/07/21 6mm polyp and diverticulosis S/P triple vessel bypass 2016 Family History Grandmother Rheumatoid arthritis Mother Rheumatoid arthritis Father Lung cancer Social History Smoking and tobacco/nicotine status: current every day tobacco/nicotine user cigarettes Packs smoked per day: 0.5 Years cigarettes smoked: 50 Alcohol intake: current Alcohol intake frequency: 3 or more drinks per day Alcohol type: beer Substance/Drug Use: never Adopted: No Lives independently: Yes Household members: spouse Marital status: Physical Exam Const: COMMON NORMALS: no acute distress, average body habitus, patient oriented x3, no limitations, healthy appearing, alert and well nourished Extremity: COMMON NORMALS: full ROM and capillary refill normal GENERAL: Yes normal exam except as noted LEFT UPPER EXTREMITY: Yes hand & digits Left hand and digits: Yes inspection (lacerations to distal palmar pads of L 4-5 fingers), Yes ROM (normal), Yes neurovascular exam (normal) and Yes tendon exam (no tendon involvement) Neuro: COMMON NORMALS: patient oriented x3, moves all extremities, no focal motor deficits and no sensory deficits noted SENSORIUM/ORIENTATION: Yes alert Skin: TRAUMA: laceration Procedures Laceration Laceration 1: Site: hand (L 5th finger) Side (If applicable): left Size (cm): 2.0 Description: flap Depth: simple, single layer Local Anesthetic: lidocaine 2% (digital block) Amount of anesthesia used (mL): 2.0 Pre-repair: wound explored and irrigated extensively Skin layer closed with: nylon Size (cm): 4-0 Number of sutures: 6 Technique: simple, interrupted Laceration 2: Site: hand (L 4th finger) Side (If applicable): left Size (cm): 1.25 Description: flap Depth: simple, single layer Local Anesthetic: lidocaine 2% (digital block) Amount of anesthesia used (mL): 2.0 Pre-repair: wound explored and irrigated extensively Skin layer closed with: nylon Size (cm): 4-0 Number of sutures: 3 Technique: simple, interrupted Course Vital Signs: Vital signs: Vital Signs Temperature 98.1 F 11/04/23 14:15 Pulse Rate 86 11/04/23 14:15 Respiratory Rate 15 11/04/23 14:15 Blood Pressure 138/81 11/04/23 14:15 Pulse Oximetry 96 11/04/23 14:15 Oxygen Delivery Me thod Room Air 11/04/23 14:15 MDM - Wound/Laceration Medical Decision Making Wounds were copiously irrigated and repaired as documented. Tetanus updated. He was given IM Ancef here and will be placed on oral antibiotics. XR negative for acute fractures. Wound care/infection precautions discussed. Differential Diagnosis Likely laceration Medical Records I reviewed the patient's medical records. Lab Data Radiology Impressions Hand X-Ray 11/04/23 14:26 IMPRESSION: No acute abnormality. Mild osteoarthritis of the left hand as above. All radiology interpretation(s) finalized by discharge Discharge Plan Discharge Patient Disposition: Home Clinical Impression: Laceration of left little finger Qualifiers: Encounter type: initial encounter Damage to nail status: without damage Foreign body presence: without foreign body Qualified Code(s): S61.217A - Laceration without foreign body of left little finger without damage to nail, initial encounter Laceration of left ring finger Qualifiers: Encounter type: initial encounter Damage to nail status: without damage Foreign body presence: without foreign body Qualified Code(s): S61.215A - Laceration without foreign body of left ring finger without damage to nail, initial encounter Condition: Stable Prescriptions: New cephalexin 500 mg capsule 500 mg PO Q6H 7 Days Qty: 28 0RF No Action aspirin [Adult Aspirin Regimen] 81 mg tablet,delayed release (DR/EC) 81 mg PO DAILY carvedilol 3.125 mg tablet 3.125 mg PO BID Qty: 180 3RF Rx Instructions: must administer with a meal/food glimepiride 4 mg tablet 4 mg PO BID Qty: 180 3RF lisinopril 10 mg tablet 10 mg PO DAILY Qty: 90 3RF Januvia 100 mg tablet 100 mg PO DAILY Qty: 90 3RF diclofenac sodium 75 mg tablet,delayed release (DR/EC) 75 mg PO BID PRN (Reason: pain) Qty: 180 1RF triamcinolone acetonide 0.1 % cream 1 applic topical BID 14 Days Qty: 80 0RF ketoconazole 2 % cream 1 applic topical BID 14 Days Qty: 60 0RF buspirone 10 mg tablet 10 mg PO BID Qty: 60 2RF pantoprazole [Protonix] 40 mg tablet,delayed release (DR/EC) 40 mg PO BID Qty: 60 0RF montelukast 10 mg tablet See Rx Instructions .ROUTE .COMPLEX Qty: 30 2RF Dose Instruction: TAKE ONE TABLET BY MOUTH DAILY Rx Instructions: TAKE ONE TABLET BY MOUTH DAILY tramadol 50 mg tablet 50 mg PO Q6H PRN (Reason: pain) 5 Days Qty: 20 0RF tramadol 50 mg tablet 50 mg PO TID PRN (Reason: pain) Qty: 60 0RF Discharge Orders: Discharge ED (Routine); Ordered 11/04/23 Ordered By: Mona Gimenez Referrals: Violet Noel FNP [Primary Care Provider] - Patient Instructions: Care For Your Stitches (DC), Finger Laceration (ED) Activity Restrictions/Additional Instructions: Keep wound/laceration clean with warm soap and water twice daily. Monitor for signs of infection such as redness, swelling, increased pain, or drainage. Please seek medical re-evaluation if these occur. If you received sutures today these will need to be removed (unless you were told by the provider that they are absorbable). The provider should have discussed with you the length of time until removal-7 TO 10 DAYS. 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
--- NOTE | 2023-11-04 14:26 | XR_ITS ---
WS: [id number] XR hand LT min 3V* [id number] REASON FOR EXAM: trauma; 4-5 fingers FINDINGS: No acute fracture. Mild changes of osteoarthritis in the DIP joints of the fingers with mild joint space narrowing, subc hondral sclerosis and osteophytosis. Similar arthropathic change in the 3 joints of the thumb. No soft tissue abnormality. XR/XR hand LT min 3V* [id number] IMPRESSION: No acute abnormality. Mild osteoarthritis of the left hand as above.
[2023-11-04] MEDS: ceFAZolin 1,000 MG in water for injection-sterile 2.5 ML 999 MG IM (14:56)
[2023-11-04] MEDS: tetanus-dipt-pertussis 0.5 mL SDV IM (14:59)
== END 2023-11-04 15:44 | disposition home or self-care (01) ==
PROVIDERS: Emergency Provider Physician Assistant; PCP Nurse Practitioner Family
DX: S61.217A Laceration without foreign body of left little finger without damage to nail, initial encounter (principal); S61.215A Laceration without foreign body of left ring finger without damage to nail, initial encounter; Z79.82 Long term (current) use of aspirin; Z79.84 Long term (current) use of oral hypoglycemic drugs; F17.210 Nicotine dependence, cigarettes, uncomplicated; I10 Essential (primary) hypertension; E11.9 Type 2 diabetes mellitus without complications; W31.89XA Contact with other specified machinery, initial encounter; Z23 Encounter for immunization
CPT/HCPCS: 12002; 73130; 90471; 90715; 96372; 99284; J0690

== ENCOUNTER → 2023-11-23 10:16 | Outpatient (BNVA) | payer MEDICARE, SELFPAY | PROVIDERS: PCP Nurse Practitioner Family; Visit Provider Surgery | DX: Z09 Encounter for follow-up examination after completed treatment for conditions other than malignant neoplasm; G89.29 Other chronic pain; K21.9 Gastro-esophageal reflux disease without esophagitis; K76.0 Fatty (change of) liver, not elsewhere classified; R10.9 Unspecified abdominal pain; R19.7 Diarrhea, unspecified | CPT/HCPCS: 36415; 80048; 80076; 83690; 85025; 99213 ==

== ENCOUNTER 2023-11-24 10:45 | Outpatient (CLI) | payer MEDICARE, SELFPAY | END 2023-11-24 10:46 | disposition home or self-care (01) | LOC: LAB 10:47 | PROVIDERS: PCP Nurse Practitioner Family; Visit Provider Surgery | DX: K76.0 Fatty (change of) liver, not elsewhere classified (principal); R10.9 Unspecified abdominal pain; G89.29 Other chronic pain; R19.7 Diarrhea, unspecified | CPT/HCPCS: 83630; 83993 ==

== ENCOUNTER 2023-11-29 07:55 | Day surgery (SDC) | payer MEDICARE, SELFPAY ==
[2023-11-29 08:08] VITALS: BP 145/81; PULSE 68; RESP 18; TEMP 36.1; O2SAT 96; BMI 27.3
--- NOTE | 2023-11-29 08:12 | W.PM.OPSUD ---
Surgery/Procedure H&P Update DATE OF PROCEDURE: November 29, 2023 DATE H&P PERFORMED: 11/23/23 H&P UPDATE INFORMATION: I have reviewed H&P completed within last 30 days, I have examined patient prior to procedure, No changes to prior documentation and H&[place] is in [facility] [place] date indicated PLANNED PROCEDURE: Operation Date: 11/29/23 09:05 Proposed Procedures p EGD 63460, K21.9(Not Applicable) - Anibal Blanton MD
[2023-11-29] MEDS: sodium chloride 0.9% 1,000 ML 30 ML IV (08:19)
--- NOTE | 2023-11-29 08:19 | ANES.PREANE2 ---
Pre-Anesthetic Assessment Height/Weight: Height 1.75 m Weight 83.915 kg Temp Pulse Resp BP Pulse Ox O2 Del Method 97.0 F L 68 18 145/81 96 Room Air 11/29/23 08:08 11/29/23 08:08 11/29/23 08:08 11/29/23 08:08 11/29/23 08:08 11/29/23 08:08 Operation Date: 11/29/23 09:05 Proposed Procedures p EGD 36680, K21.9(Not Applicable) - Anibal Blanton MD Familial anesthetic complications: None Was Beta Aly taken within 24 hours: Yes Was Clonidine taken within 24 hours: N/A Last intake: Intake Last Liquid Date 11/28/23 Last Liquid Time 20:00 Last Solid Date 11/28/23 Last Solid Time 17:00 Social Tobacco and No alcohol Exam alert, oriented x 3, clear to auscultation bilaterally and regular rate & rhythm Airway Mallampati: Class I Dentition: false Pulmonary Sleep Apnea CV/HEM Coronary Artery Disease (CABG 8 yrs ago) and Hypertension Hepatic Fatty liver GI Gastroesophageal Reflux Disease Metabolic Diabetes Mellitus Anesthetic Plan ASA status: 3 Anesthesia: MAC Risk of > 500 ml blood loss (7ml/kg in children): No Medications/Allergies Home Medications Medication Instructions Recorded Confirmed Last Taken Type aspirin 81 mg tablet,delayed 81 mg PO DAILY 02/04/23 11/29/23 11/28/23 History release (Adult Aspirin Regimen) carvedilol 3.125 mg tablet 3.125 mg PO BID #180 tabs 02/04/23 11/29/23 11/29/23 Rx glimepiride 4 mg tablet 4 mg PO BID #180 tabs 02/04/23 11/29/23 11/28/23 Rx lisinopril 10 mg tablet 10 mg PO DAILY #90 tabs 02/04/23 11/29/23 11/28/23 Rx sitagliptin phosphate 100 mg 100 mg PO DAILY #90 tabs 02/04/23 11/29/23 11/28/23 Rx tablet (Januvia) diclofenac sodium 75 mg 75 mg PO BID PRN pain #180 tabs 02/21/23 11/29/23 11/28/23 Rx tablet,delayed release buspirone 10 mg tablet 10 mg PO BID #60 tabs 09/07/23 11/29/2311/28/24 Rx tramadol 50 mg tablet 50 mg PO TID PRN pain #90 tabs 11/16/23 11/29/23 11/28/23 Rx pantoprazole 40 mg tablet,delayed 40 mg PO BID 11/24/23 11/29/23 11/28/23 History release montelukast 10 mg tablet 10 mg PO DAILY 11/29/23 11/29/23 11/28/23 History Allergies Allergy/AdvReac Type Severity Reaction Status Date / Time Penicillins Allergy Intermediate Unknown Verified 11/29/23 08:06 [id number] Reductase Allergy body aches Verified 11/29/23 08:06 Inhibitor codeine AdvReac Mild constipatio Verified 11/29/23 08:06 n COUNTS INCLUDE 234 BEDS AT THE [facility] Anesthesia Medical History Enrolled in chronic care management Fatty liver Vitamin D deficiency History of melanoma 2022 Arthropathy of left hip Obstructive sleep apnea Hypertension Type 2 diabetes mellitus Surgical History History of colonoscopy 04/07/21 6mm polyp and diverticulosis S/P triple vessel bypass 2016 Family History Grandmother Rheumatoid arthritis Mother Rheumatoid arthritis Father Lung cancer Social History Smoking and tobacco/nicotine status: never used tobacco/nicotine Alcohol intake: current Alcohol intake frequency: 3 or more drinks per day Alcohol type: beer Substance/Drug Use: never Adopted: No Lives independently: Yes Household members: spouse Marital status: Data Anesthesia Cardiac Studies: No Data to Display
[2023-11-29 09:33] VITALS: BP 96/58; PULSE 61; RESP 16; TEMP 36.2; O2SAT 93
[2023-11-29 09:45] VITALS: BP 120/65; PULSE 61; RESP 16; TEMP 36.2; O2SAT 95
--- NOTE | 2023-11-29 10:08 | ANE.PACU2 ---
Inpatient post-anesthesia follow up: Airway intact: Yes Vital signs: Temperature 97.2 F Pulse Rate 61 Respiratory Rate 16 Blood Pressure 120/65 Pulse Oximetry 95 Oxygen Delivery Me thod Room Air Oxygen Flow Rate Fraction of Inspir ed Oxygen Hydration adequate: Yes Nausea and vomiting: No Pain level: 1 Mental status: Baseline
== END 2023-11-29 10:08 | disposition home or self-care (01) ==
PROVIDERS: PCP Nurse Practitioner Family; Visit Provider Surgery
PROC: 0DJ08ZZ Inspection of Upper Intestinal Tract, Via Natural or Artificial Opening Endoscopic (ICD-10-PCS; CPT 43235; principal; 2023-11-29 09:05)
DX: K21.00 Gastro-esophageal reflux disease with esophagitis, without bleeding (principal); K29.50 Unspecified chronic gastritis without bleeding; K44.9 Diaphragmatic hernia without obstruction or gangrene; K29.80 Duodenitis without bleeding; I25.10 Atherosclerotic heart disease of native coronary artery without angina pectoris; Z95.1 Presence of aortocoronary bypass graft; I10 Essential (primary) hypertension; E11.9 Type 2 diabetes mellitus without complications; G47.33 Obstructive sleep apnea (adult) (pediatric)
CPT/HCPCS: 43239; 88305; 88342; J2704; J7030

== ENCOUNTER → 2023-12-08 09:32 | Outpatient (BNVA) | payer MEDICARE, SELFPAY | PROVIDERS: PCP Nurse Practitioner Family; Visit Provider Nurse Practitioner Family | DX: E11.9 Type 2 diabetes mellitus without complications (principal); E55.9 Vitamin D deficiency, unspecified | CPT/HCPCS: 80053; 80061; 82306; 83036; 83721; 84443; 85025 ==

== ENCOUNTER → 2023-12-09 09:46 | Outpatient (BNVA) | payer MEDICARE, SELFPAY | PROVIDERS: PCP Nurse Practitioner Family; Visit Provider Surgery | DX: Z09 Encounter for follow-up examination after completed treatment for conditions other than malignant neoplasm (principal) | CPT/HCPCS: 99214 ==

== ENCOUNTER → 2024-02-29 07:59 | Outpatient (BNVA) | payer MEDICARE, SELFPAY | PROVIDERS: PCP Nurse Practitioner Family; Visit Provider Surgery | DX: R03.0 Elevated blood-pressure reading, without diagnosis of hypertension (principal) | CPT/HCPCS: 99214 ==

== ENCOUNTER → 2024-03-12 11:41 | Outpatient (BNVA) | payer MEDICARE, SELFPAY | PROVIDERS: PCP Nurse Practitioner Family; Visit Provider Nurse Practitioner Family | DX: E11.9 Type 2 diabetes mellitus without complications (principal); Z12.5 Encounter for screening for malignant neoplasm of prostate | CPT/HCPCS: 80053; 80061; 83036; 84443; 85025; G0103 ==

== ENCOUNTER → 2024-04-18 08:43 | Outpatient (BNVA) | payer MEDICARE, SELFPAY | PROVIDERS: PCP Nurse Practitioner Family; Visit Provider Nurse Practitioner Family | DX: L57.8 Other skin changes due to chronic exposure to nonionizing radiation (principal); L82.1 Other seborrheic keratosis; D22.5 Melanocytic nevi of trunk; Z08 Encounter for follow-up examination after completed treatment for malignant neoplasm; Z85.820 Personal history of malignant melanoma of skin; B07.8 Other viral warts; L53.8 Other specified erythematous conditions; R20.8 Other disturbances of skin sensation; L29.89 Other pruritus; L57.0 Actinic keratosis | CPT/HCPCS: 17000; 17110; 99203 ==

== ENCOUNTER → 2024-06-11 08:54 | Outpatient (BNVA) | payer MEDICARE, SELFPAY | PROVIDERS: PCP Nurse Practitioner Family; Visit Provider Nurse Practitioner Family | DX: E11.9 Type 2 diabetes mellitus without complications (principal); E55.9 Vitamin D deficiency, unspecified | CPT/HCPCS: 80053; 80061; 82306; 83036; 84443; 85025 ==

== ENCOUNTER → 2024-06-20 10:32 | Outpatient (BNVA) | payer MEDICARE, SELFPAY | PROVIDERS: PCP Nurse Practitioner Family; Visit Provider Nurse Practitioner Family | DX: L81.4 Other melanin hyperpigmentation (principal); L57.8 Other skin changes due to chronic exposure to nonionizing radiation; L82.1 Other seborrheic keratosis; D22.5 Melanocytic nevi of trunk; L53.8 Other specified erythematous conditions; L29.89 Other pruritus; Z08 Encounter for follow-up examination after completed treatment for malignant neoplasm; Z85.820 Personal history of malignant melanoma of skin; B07.8 Other viral warts; Z78.9 Other specified health status | CPT/HCPCS: 17110; 99213 ==

== ENCOUNTER 2024-07-11 12:39 | Inpatient (IN) | payer MEDICARE, SELFPAY ==
[2024-07-11] VITALS (11 sets, daily range): BP systolic 129–161; BP diastolic 66–82; PULSE 67–85; RESP 16–22; TEMP 36.4–36.8; O2SAT 95–98; BMI 26.2
--- NOTE | 2024-07-11 12:52 | ECG_ITS ---
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 Measurements Intervals [place] Rate: 79 P: 28 ND: 193 QRS: -39 QRSD: 98 T: 26 QT: 365 QTc: 420 Interpretive Statements SINUS RHYTHM LEFT AXIS DEVIATION [QRS AXIS < -30] INCOMPLETE RIGHT BUNDLE BRANCH BLOCK [90+ ms QRS DURATION, TERMINAL R IN V1/V2, 40+ ms S IN I/aVL/V4/V5/V6] Compared to ECG 04/30/2016 12:24:08 Left-axis deviation now present Incomplete right bundle-branch block now present Electronically Signed On 07-14-2024 18:21:18 CDT by Camacho Ceja M.D. [id number]
--- NOTE | 2024-07-11 12:53 | CT_ITS ---
WS: [id number] CT HEAD NONCONTRAST HISTORY: Symptoms of acute stroke TECHNIQUE: Contiguous axial imaging performed through the brain. Bone and soft tissue windows. Sagittal and coronal reformats reviewed. All CT scans at [facility] use at least one of these dose optimization techniques: automated exposure control; mA and/or kV adjustment per patient size (includes targeted exams where dose is matched to clinical indication); or iterative reconstruction. DLP: 1162.34 mGy COMPARISON: None available. No acute intracranial hemorrhage, midline shift or mass effect. Mild cerebral atrophy and minimal small vessel disease. Mild cerebellar atrophy. Ventricles: Normal size with no hydrocephalus. No inferior displacement of cerebellar tonsils. Paranasal sinuses: Air-fluid level RIGHT maxillary sinus. Small air-fluid levels bilaterally in the sphenoid sinuses and mucoperiosteal thickening in the ethmoid air cells. Mastoid air cells: Well pneumatized. Calvarium and scalp: Skull is intact with no soft tissue edema or swelling. Distal vertebral artery calcifications. Moderate calcification within the intracranial carotid arteries. CT/CT head thrombolytic 13221 IMPRESSION: 1. No acute intracranial hemorrhage or edema. 2. Mild cerebral atrophy and small vessel disease. 3. Air-fluid levels in the RIGHT maxillary sinus and bilaterally in the spheno id sinuses. Acute sinusitis. 4. Moderate calcified plaque in the intracranial carotid arteries and distal v ertebral arteries.
--- NOTE | 2024-07-11 12:58 | CT_ITS ---
WS: [id number] CT ANGIOGRAM CEREBRAL AND CAROTID ARTERIES HISTORY: dizzy TECHNIQUE: CT angiogram is performed of the carotid and cerebral arteries. During arterial injection imaging is obtained from the skull vertex to the aortic arch in 1.25 mm imaging. Coronal and sagittal reformats are submitted. Additional multi planar reformats of the carotid and cerebral arteries are submitted, MIP imaging also reviewed. NASCET criteria utilized. All CT scans at [facility] use at least one of these dose optimization techniques: automated exposure control; mA and/or kV adjustment per patient size (includes targeted exams where dose is matched to clinical indication); or iterative reconstruction. CONTRAST: Omnipaque 350; 100 mL IV. DLP: 438.97 mGy.cm COMPARISON: Noncontrast CT head 07/11/2024 Carotid Angiogram: Right carotid: Common carotid artery: Arises normally from the innominate artery. No significant plaque or stenosis. Internal carotid artery: Near circumferential plaque bifurcation carotid artery. Stenosis calculated 58%. Stenosis does appear to be at least 58% and possibly slightly higher. External carotid artery: Patent. Left carotid: Common carotid artery: Arises normally from the aorta. No significant plaque or stenosis. Internal carotid artery: Calcified plaque at the bifurcation with stenosis less than 50%. External carotid artery: Patent. Right vertebral artery: Normal caliber. No dissection. Left vertebral artery: Normal caliber no dissection. Small amount of plaque at the origin from the subclavian artery with no stenosis. Subclavian arteries: No stenosis or significant abnormality. Upper thorax: Advanced centrilobular and paraseptal emphysema. Atherosclerotic plaque within the aortic arch. Prior median sternotomy. Thyroid gland: Normal. Osseous structures: Cervical spondylosis and degenerative disc disease. CEREBRAL ANGIOGRAM: Intracranial vertebral arteries: Vertebral arteries through the foramen magnum containing near circumferential calcified plaque with mild narrowing of the lumen. No complete occlusion. Basilar artery: No significant stenosis or occlusion. No aneurysm. Intracranial Internal carotid arteries: Dense calcified plaque beginning in the proximal cavernous sinuses extending supraclinoid. Stenosis near 50%. No occlusion. Middle cerebral arteries: Normal. Anterior cerebral arteries and ACOM: Normal. Posterior cerebral arteries and PCOM's: Normal. Small filling defects in the LEFT transverse sinus is probably an arachnoid granulation. No thrombus or occlusion. Mastoid air cells: Normal. Paranasal sinuses: RIGHT maxillary air-fluid level. Calvarium: Normal. CT/CT angio headneck* [id number] IMPRESSION: 1. RIGHT cervical ICA stenosis 58% by measurement. Visually the stenosis appea rs just slightly greater. 2. Less than 50% stenosis LEFT cervical ICA. 3. No occlusion or thrombus within the [place]. No aneurysm. 4. Intracranial carotid artery stenosis near 50% through the cavernous sinuses . 5. No vertebral artery dissection or occlusion.
[2024-07-11 12:59] LABS: Glucose Point of Care 186 mg/dL (70-110)
[2024-07-11] MEDS: iohexol 350 mg/mL 500 mL Btl (per mL) IV (13:15)
[2024-07-11 13:19] LABS: Basophils % 0.4 %; Eosinophils # 0.2 10^3/uL (0.0-0.8); Eosinophils % 2.8 %; Hematocrit 47.5 % (37-53); Lymphocytes # 1.7 10^3/uL (0.8-4.8); Lymphocytes % 21.4 %; Mean Corpuscular HGB Conc 33.9 g/dL (30-55); Mean Corpuscular Hemoglobin 29.8 pg (27-33); Mean Corpuscular Volume 87.8 fl (82-101); Mean Platelet Volume 11.4 fL (7.4-10.4); Monocytes # 0.5 10^3/uL (0.2-0.9); Monocytes % 6.8 %; Neutrophils # 5.32 10^3/uL (1.8-7.7); Neutrophils % 68.3 %; Nucleated Red Blood Cells % 0 %; Platelet Count 153 10^3/cmm (157-399); Red Blood Count 5.41 10^6/uL (3.85-5.65); Red Cell Distribution Width 15.5 % (12.1-15.1); White Blood Count 7.79 10^3/uL (3.29-11.43)
--- NOTE | 2024-07-11 13:19 | W.ED.DIZZY ---
HPI - Dizziness General: Chief Complaint: Dizziness Stated Complaint: Dizzy Time Seen by Provider: 07/11/24 12:52 Source: patient Mode of arrival: ambulatory Limitations: no limitations History of Present Illness: HPI Narrative: 69-year-old male states he has been having dizziness been ongoing for months got much worse over this last week he states that he is feels dizzy feels like he is drunk when he is walking had some nausea. States it seems to be worse with movement he denies any headache he has had numbness in bilateral hands. Denies any fever. Patient states he is also had some slight chest pain shortness of breath over the last week as well. Associated symptoms: Reports chest pain; Denies chills, headache(s), nausea or vomiting Associated neuro symptoms: Reports numbness in extremities Related Data Home Medications ?Medication ?Instructions ?Recorded ?Confirmed aspirin 81 mg tablet,delayed 81 mg PO DAILY 02/04/23 07/11/24 release (Adult Aspirin Regimen) buspirone 10 mg tablet 10 mg PO BID 07/11/24 07/11/24 carvedilol 3.125 mg tablet 3.125 mg PO BID 07/11/24 07/11/24 glimepiride 4 mg tablet 4 mg PO BID 07/11/24 07/11/24 insulin glargine 100 unit/mL 15 unit SUBCUT QAM 07/11/24 07/11/24 subcutaneous solution (Lantus U-100 Insulin) lisinopril 20 mg tablet 20 mg PO DAILY 07/11/24 07/11/24 montelukast 10 mg tablet 10 mg PO DAILY 07/11/24 07/11/24 nitroglycerin 0.4 mg sublingual See Rx Instructions .Route .COMPLEX 07/11/24 07/11/24 tablet sitagliptin phosphate 100 mg 100 mg PO DAILY 07/11/24 07/11/24 tablet (Januvia) trazodone 100 mg tablet 100 mg PO BEDTIME 07/11/24 07/11/24 Previous Rx's ?Medication ?Instructions ?Recorded blood sugar diagnostic (Blood #50 ea 12/14/23 Glucose Test strips) C-PAP with auto titrate 5-12 cm #1 ea 12/19/23 water pressure blood-glucose meter #1 ea 01/03/24 lancets #200 ea 01/03/24 blood-glucose meter (Blood Glucose #1 ea 01/12/24 Monitoring kit) blood sugar diagnostic (Blood #200 ea 02/06/24 Glucose Test strips) tramadol 50 mg tablet 50 mg PO TID PRN pain #90 tabs 03/01/24 lancets 31 gauge #100 ea 03/02/24 pen needle, diabetic 31 gauge x #100 ea 04/17/24 5/16 (Pen Needle) bupropion HCl 150 mg 24 hr tablet, 150 mg PO QAM #30 tabs 06/20/24 extended release (Wellbutrin XL) Allergies Allergy/AdvReac Type Severity Reaction Status Date / Time Penicillins Allergy Intermediate Unknown Verified 07/02/24 12:16 [id number]-CdD Reductase Allergy body aches Verified 07/02/24 12:16 Inhibitor codeine AdvReac Mild constipatio Verified 07/02/24 12:16 n Review of Systems Const: Denies: fever(s), chills, body aches or change in appetite ENMT: Denies: throat pain or dental pain Card: Reports: chest pain Resp: Reports: dyspnea GI: Denies: abdominal pain, nausea, vomiting or diarrhea Musc: Denies: neck pain or back pain Skin/Breast: Denies: rash Neuro: Reports: numbness in extremities and dizziness; Denies: headache(s) PFSH ED PFSH: Medical History Hyperlipidemia Enrolled in chronic care management Fatty liver Vitamin D deficiency History of melanoma 2022 Arthropathy of left hip Obstructive sleep apnea Hypertension Type 2 diabetes mellitus Surgical History History of colonoscopy 04/07/21 6mm polyp and diverticulosis S/P triple vessel bypass 2016 Family History Grandmother Rheumatoid arthritis Mother Rheumatoid arthritis Father Lung cancer Social History Smoking and tobacco/nicotine status: current every day tobacco/nicotine user cigarettes Packs smoked per day: 0.5 Years cigarettes smoked: 50 Alcohol intake: current Alcohol intake frequency: 3 or more drinks per day Alcohol type: beer Substance/Drug Use: never Adopted: No Lives independently: Yes Household members: spouse Marital status: Physical Exam Const: COMMON NORMALS: no acute distress, patient oriented x3 and healthy appearing HENMT: COMMON NORMALS: normocephalic and atraumatic HEAD & SCALP: normocephalic and atraumatic Eye: COMMON NORMALS: conjunctivae normal CONJUNCTIVA: Yes conjunctivae normal Neck/C-Spine: COMMON NORMALS: full ROM and supple Chest: COMMONS NORMALS: normal inspection of the chest Resp: COMMON NORMALS: normal respiratory effort, No retractions, No use of accessory muscles and clear to auscultation bilaterally AUSCULTATION: clear to auscultation bilaterally Cardio: COMMON NORMALS: regular rate, regular rhythm and No murmurs present (Cardio) RATE: regular rate RHYTHM: regular rhythm GI: COMMON NORMALS: Normal to inspection, nondistended, normoactive bowel sounds present, Soft to palpation, non-tender and no masses PALPATION: Yes Soft to palpation Extremity: COMMON NORMALS: normal to inspection and full ROM Neuro: COMMON NORMALS: patient oriented x3, moves all extremities and no focal motor deficits CRANIAL NERVES: Yes CN normal except as noted GAIT: Yes Normal gait present MOTOR EXAM: 5/5 motor strength present throughout Psych: COMMON NORMALS: mental status grossly normal, Normal thought process present and cooperative THOUGHT PROCESS: Normal thought process present Skin: COMMON NORMALS: no rashes or lesions noted and no wounds GENERAL SKIN EXAM: no rashes or lesions noted Course Vital Signs: Vital signs: Vital Signs Temperature 98.3 F 07/11/24 12:44 Pulse Rate 67 07/11/24 14:22 Respiratory Rate 19 H 07/11/24 14:22 Blood Pressure 139/81 07/11/24 14:22 Pulse Oximetry 97 07/11/24 14:22 Oxygen Delivery Me thod Room Air 07/11/24 12:44 MDM - Dizziness Medical Decision Making Patient presents here with dizziness head CT CT are normal is not a thrombolytic candidate due to time. Patient seen by neurologist who recommended admission for MRI. Spoke to hospitalist will admit Medical Records I reviewed the patient's medical records. Lab Data I reviewed the patient's lab results. 07/11/24 13:03 07/11/24 14:[address] 07/11/24 12:53 IMPRESSION: 1. No acute intracranial hemorrhage or edema. 2. Mild cerebral atrophy and small vessel disease. 3. Air-fluid levels in the RIGHT maxillary sinus and bilaterally in the sphenoid sinuses. Acute sinusitis. 4. Moderate calcified plaque in the intracranial carotid arteries and distal vertebral arteries. Head/Neck CTA 07/11/24 12:58 IMPRESSION: 1. RIGHT cervical ICA stenosis 58% by measurement. Visually the stenosis appears just slightly greater. 2. Less than 50% stenosis LEFT cervical ICA. 3. No occlusion or thrombus within the [place]. No aneurysm. 4. Intracranial carotid artery stenosis near 50% through the cavernous sinuses. 5. No vertebral artery dissection or occlusion. Chest X-Ray 07/11/24 13:24 IMPRESSION: Diffuse bilateral interstitial pulmonary prominence may all be fibrosis, but some or all of this could be pulmonary edema and/or pneumonitis, possibly superimposed upon fibrosis. Unclear if this has changed. Laboratory Results WBC 7.79 10^3/uL (3.29-11.43) 07/11/24 13:03 RBC 5.41 10^6/uL (3.85-5.65) 07/11/24 13:03 Hgb 16.10 g/dL (11.27-16.99) 07/11/24 13:03 Hct 47.5 % (37-53) 07/11/24 13:03 MCV 87.8 fl (82-101) 07/11/24 13:03 MCH 29.8 pg (27-33) 07/11/24 13:03 MCHC 33.9 g/dL (30-55) 07/11/24 13:03 RDW 15.5 % (12.1-15.1) H 07/11/24 13:03 Plt Count 153 10^3/cmm (157-399) L 07/11/24 13:03 MPV 11.4 fL (7.4-10.4) H 07/11/24 13:03 Neut % (Auto) 68.3 % 07/11/24 13:03 Lymph % (Auto) 21.4 % 07/11/24 13:03 [place] % (Auto) 6.8 % 07/11/24 13:03 Eos % (Auto) 2.8 % 07/11/24 13:03 Baso % (Auto) 0.4 % 07/11/24 13:03 Neut # (Auto) 5.32 10^3/uL (1.8-7.7) 07/11/24 13:03 Lymph # (Auto) 1.7 10^3/uL (0.8-4.8) 07/11/24 13:03 [place] # (Auto) 0.5 10^3/uL (0.2-0.9) 07/11/24 13:03 Eos # (Auto) 0.2 10^3/uL (0.0-0.8) 07/11/24 13:03 Baso # (Auto) 0.0 10^3/uL (0.0-0.1) 07/11/24 13:03 Nucleated RBC % (auto) 0 % 07/11/24 13:03 Nucleated RBCs # 0.0 /100WBC 07/11/24 13:03 PT 12.60 SECONDS (12.1-14.9) 07/11/24 14:24 INR 0.89 (0.8-1.2) 07/11/24 14:24 APTT 27.5 SECONDS (23.9-36.7) 07/11/24 14:24 Sodium 132 mmol/L (136-145) L 07/11/24 14:24 Potassium 4.2 mmol/L (3.5-5.1) 07/11/24 14:24 Chloride 95 mmol/L (98-107) L 07/11/24 14:24 Carbon Dioxide 26 mmol/L (22-29) 07/11/24 14:24 Anion Gap 15.2 (5-19) 07/11/24 14:24 BUN 13 mg/dL (8-23) 07/11/24 14:24 Creatinine 0.7 mg/dL (0.7-1.2) 07/11/24 14:24 GFR Calculation Not Reportable 07/11/24 14:24 Glucose 158 mg/dL (65-115) H 07/11/24 14:24 POC Glucose 186 mg/dL (70-110) H 07/11/24 12:54 Calculated Osmolality 277 mOsm/kg (285-295) L 07/11/24 14:24 Calcium 9.1 mg/dL (8.5-10.5) 07/11/24 14:24 Total Bilirubin 0.4 mg/dL (0.15-1.2) 07/11/24 14:24 AST 22 U/L (0-40) 07/11/24 14:24 ALT 34 U/L (0-41) 07/11/24 14:24 Alkaline Phosphatase 87 U/L (40-130) 07/11/24 14:24 Troponin T Baseline 11 ng/L (0-15) 07/11/24 14:24 NT-Pro-B Natriuret Pep 189 pg/mL (0-125) H 07/11/24 14:24 Total Protein 7.1 g/dL (6.6-8.7) 07/11/24 14:24 Albumin 4.4 g/dL (3.5-5.2) 07/11/24 14:24 Globulin 2.7 g/dL (1.3-4.6) 07/11/24 14:24 Urine Color Yellow (Yellow) 07/11/24 13:20 Urine Appearance Clear (CLEAR) 07/11/24 13:20 Urine pH 6.5 (5-7) 07/11/24 13:20 Ur Specific [place] 1.005 (1.005-1.030) 07/11/24 13:20 Urine Protein Neg (Negative) 07/11/24 13:20 Urine Glucose (UA) Norm (Normal) 07/11/24 13:20 Urine Ketones Negative (Negative) 07/11/24 13:20 Urine Blood Neg (Negative) 07/11/24 13:20 Urine Nitrate Negative (Negative) 07/11/24 13:20 Urine Bilirubin Neg (Negative) 07/11/24 13:20 Urine Urobilinogen Norm mg/dL (Negative) 07/11/24 13:20 Ur Leukocyte Esterase Negative (Negative) 07/11/24 13:20 Urine RBC 0-2 /hpf (0-2) 07/11/24 13:20 Urine WBC 0-5 /hpf (0-5) 07/11/24 13:20 Ur Squamous Epith Cells 0-5 /hpf (0-5) 07/11/24 13:20 Amorphous Sediment Not Reportable 07/11/24 13:20 Urine Bacteria None seen /hpf (NONE) 07/11/24 13:20 Hyaline Casts 0-4 /lpf H 07/11/24 13:20 Urine Opiates Screen Negative ng/mL (Negative) 07/11/24 13:20 Ur Barbiturates Screen Negative ng/mL (Negative) 07/11/24 13:20 Ur Phencyclidine Scrn Negative ng/mL (Negative) 07/11/24 13:20 Ur Amphetamines Screen Negative ng/mL (Negative) 07/11/24 13:20 U Benzodiazepines Scrn Negative ng/mL (Negative) 07/11/24 13:20 Urine Cocaine Screen Negative ng/mL (Negative) 07/11/24 13:20 U Marijuana (THC) Screen Negative ng/mL (Negative) 07/11/24 13:20 All radiology interpretation(s) finalized by discharge Discharge Plan Discharge Patient Disposition: Admitted As Inpatient Clinical Impression: Dizziness Condition: Stable Prescriptions: No Action aspirin [Adult Aspirin Regimen] 81 mg tablet,delayed release (DR/EC) 81 mg PO DAILY (DME) lancets Misc See Rx Instructions .MEDSUPPLY Qty: 200 12RF Rx Instructions: Use as directed to prick skin for blood sugar checks daily (DME) blood-glucose meter Misc See Rx Instructions .MEDSUPPLY Qty: 1 0RF Rx Instructions: Use as directed for checking blood sugar daily (DME) Blood Glucose Test Strip See Rx Instructions .MEDSUPPLY Qty: 200 12RF Rx Instructions: Use as directed with glucometer to check blood sugar TWICE DAILY *E11.65* bupropion HCl [Wellbutrin XL] 150 mg tablet extended release 24 hr 150 mg PO QAM Qty: 30 0RF (DME) Blood Glucose Test Strip See Rx Instructions .ROUTE .MEDSUPPLY Qty: 50 6RF Rx Instructions: To test 1 time per day (DME) C-PAP with auto titrate 5-12 cm water pressure See Rx Instructions .Route .MEDSUPPLY Qty: 1 0RF Rx Instructions: As directed (DME) blood-glucose meter [Blood Glucose Monitoring] Kit See Rx Instructions .ROUTE .MEDSUPPLY Qty: 1 0RF Rx Instructions: To test 1 x per day tramadol 50 mg tablet 50 mg PO TID PRN (Reason: pain) Qty: 90 0RF (DME) lancets 31 gauge misc See Rx Instructions .ROUTE .MEDSUPPLY Qty: 100 3RF Rx Instructions: to test 2 times per day (DME) pen needle, diabetic [Pen Needle] 31 gauge x 5/16 needle See Rx Instructions miscellaneous .MEDSUPPLY Qty: 100 0RF Rx Instructions: As directed, one time daily with Lantus nitroglycerin 0.4 mg tablet, sublingual See Rx Instructions .ROUTE .COMPLEX Rx Instructions: Take 0.4 mg sublingually every 5 minutes as needed for chest pain, do not exceed 3 doses per episode. insulin glargine [Lantus U-100 Insulin] 100 unit/mL solution 15 unit SUBCUT QAM lisinopril 20 mg tablet 20 mg PO DAILY carvedilol 3.125 mg tablet 3.125 mg PO BID trazodone 100 mg tablet 100 mg PO BEDTIME buspirone 10 mg tablet 10 mg PO BID glimepiride 4 mg tablet 4 mg PO BID montelukast 10 mg tablet 10 mg PO DAILY Januvia 100 mg tablet 100 mg PO DAILY Referrals: Violet Noel FNP [Primary Care Provider] - Print Language: Swedish Coding Level of Care Code ED Electronic Scale Tester for Maria Luisa Bhat NIH stroke score NIHSS Level Of Consciousness - 1a: 0 Level Of Consciousness Questions - 1b: Both Correct Level Of Consciousness Commands - 1c: Both Correct Best Gaze - 2: Normal Visual Can - 3: No Visual Loss Facial Palsy - 4: Normal Motor Arm Right - 5: No Drift Motor Arm Left - 5: No Drift Motor Leg Right - 6: No Drift Motor Leg Left - 6: No Drift Limb Ataxia - 7: Absent Sensory - 8: Normal Best Language - 9: No Aphasia Dysarthia - 10: Normal Extinction And Inattention - 11: 0 Score Total Score: 0
[2024-07-11] MEDS: meclizine 25 mg tablet 50 MG PO (13:22)
[2024-07-11] MEDS: ondansetron 2 mg/ML SDV 2 mL 4 MG IVP (13:22)
--- NOTE | 2024-07-11 13:24 | XRR_ITS ---
PROCEDURE INFORMATION: Exam: XR Chest Exam date and time: 07/11/2024 1:40 PM Age: 69 years old Clinical indication: Shortness of breath; Additional info: SOB TECHNIQUE: Imaging protocol: Radiologic exam of the chest. Views: 1 view. COMPARISON: CT chest w con* [id number] 02/18/2023 1:13 PM FINDINGS: Lungs: Diffuse bilateral interstitial pulmonary prominence may all be fibrosis, but some or all of this could be pulmonary edema and/or pneumonitis, possibly superimposed upon fibrosis. Unclear if this has changed. Otherwise, unremarkable. Pleural spaces: Unremarkable. No pleural effusion. No pneumothorax. Heart/Mediastinum: Unremarkable. No cardiomegaly. Bones/joints: Mild scoliosis with mild multilevel spondylosis and partial spinal ankylosis bilateral shoulder arthritis. Otherwise, unremarkable. Other findings: Surgical changes. XR/XR chest 1V portable [id number] IMPRESSION: Diffuse bilateral interstitial pulmonary prominence may all be fibrosis, but some or all of this could be pulmonary edema and/or pneumonitis, possibly superimposed upon fibrosis. Unclear if this has changed.
--- NOTE | 2024-07-11 13:40 | PM.CONSULT ---
Providers/Reason For Consult Consulting Physician/Specialty*: Apollo Mercedes MD neurology and epilepsy Reason for Consult*: Acute care/code stroke emergency department room #10 Primary Care Provider: FLAKO Alejo History of Present Illness History of Present Illness Cristiana Marinelli is a 69 year old male with a history of coronary atherosclerotic heart disease status post three-vessel CABG in the past, hypertension and type 2 diabetes mellitus and hyperlipidemia with allergic reaction to statins. The patient stated that 5 to 7 days prior to presenting to [facility] emergency room on 07/11/2024 he began experiencing vertigo described as feeling off balance with numbness and tingling radiating down his arms bilaterally associated with chest pain and shortness of breath. As a result of the condition/symptoms not abating the patient presented to the [facility] emergency department on 07/11/2024. Code stroke was initiated at 12:53 PM on 07/11/2024. NIH score =0 Note: Since the patient NIH score =0 and the patient's symptoms began 5 to 7 days prior to presenting to the [facility] emergency department on 07/11/2024, patient was not a candidate for intravenous thrombolytics and no intravenous thrombolytics were administered. Point of contact glucose Accu-Chek [address] 07/11/2024 IMPRESSION: 1. No acute intracranial hemorrhage or edema. 2. Mild cerebral atrophy and small vessel disease. 3. Air-fluid levels in the RIGHT maxillary sinus and bilaterally in the sphenoid sinuses. Acute sinusitis. 4. Moderate calcified plaque in the intracranial carotid arteries and distal vertebral arteries. Drug allergies: Statins which resulted in body aches Codeine which resulted in constipation Penicillins type reaction unknown Current medications: Aspirin 81 mg p.o. daily Wellbutrin XR 150 mg p.o. daily BuSpar 10 mg to use as directed Carvedilol 3.125 mg to use as directed Diclofenac extended release 75 mg p.o. twice daily as needed for pain Ezetimibe 10 mg to take as directed Glimepiride 4 mg to take as directed Insulin 20 units subcutaneously daily Lisinopril 20 mg p.o. to take as directed Sublingual nitroglycerin 0.3 mg every 5 minutes to take as directed Protonix 40 mg p.o. daily Sitagliptin 100 mg to take as directed Tramadol 50 mg p.o. 3 times daily as needed for pain Trazodone 100 mg to take as directed Past medical history: Coronary atherosclerotic heart disease status post coronary artery bypass graft x 3 Hypertension Hyperlipidemia Type 2 diabetes mellitus Habits: The patient smokes 5 cigarettes/day. Patient is aware of the potential health risks associated with smoking and was educated on potential health was associated with smoking and the patient voiced understanding. Patient denied alcohol use. Family history: Negative for any known strokes. Review of Systems General: Reports: 10 or more systems reviewed and unremarkable except in HPI and below Card: Reports: chest pain, dyspnea on exertion and orthopnea Neuro: Reports: dizziness and vertigo Medications/Allergies Home Medications ?Medication ?Instructions ?Recorded ?Confirmed ?Last Taken ?Type aspirin 81 mg tablet,delayed 81 mg PO DAILY 02/04/23 07/02/24 11/28/23 History release (Adult Aspirin Regimen) diclofenac sodium 75 mg 75 mg PO BID PRN pain #180 tabs 02/21/23 07/02/24 11/28/23 Rx tablet,delayed release blood sugar diagnostic (Blood #50 ea 12/14/23 07/02/24 Unknown Rx Glucose Test strips) C-PAP with auto titrate 5-12 cm #1 ea 12/19/23 07/02/24 Unknown Rx water pressure alcohol swabs 1 pad topical DIRECTED #200 ea 01/03/24 07/02/24 Unknown Rx blood-glucose meter #1 ea 01/03/24 07/02/24 Unknown Rx lancets #200 ea 01/03/24 07/02/24 Unknown Rx nystatin 100,000 unit/gram topical 1 applic topical BID 10 days #30 01/03/24 07/02/24 Unknown Rx cream grams blood-glucose meter (Blood Glucose #1 ea 01/12/24 07/02/24 Unknown Rx Monitoring kit) glimepiride 4 mg tablet See Rx Instructions .Route 01/30/24 07/02/24 Unknown Rx .COMPLEX #180 tabs sitagliptin phosphate 100 mg See Rx Instructions .Route 01/30/24 07/02/24 Unknown Rx tablet (Januvia) .COMPLEX #90 tabs blood sugar diagnostic (Blood #200 ea 02/06/24 07/02/24 Unknown Rx Glucose Test strips) pantoprazole 40 mg tablet,delayed 40 mg PO ONCE 30 days #30 tabs 02/29/24 07/02/24 Unknown Rx release (Protonix) polyethylene glycol 3350 17 17 g PO DAILY 30 days #238 grams 02/29/24 07/02/24 Unknown Rx gram/dose oral powder (Miralax) carvedilol 3.125 mg tablet See Rx Instructions .Route 03/01/24 07/02/24 Unknown Rx .COMPLEX #180 tabs tramadol 50 mg tablet 50 mg PO TID PRN pain #90 tabs 03/01/24 07/02/24 Unknown Rx lancets 31 gauge #100 ea 03/02/24 07/02/24 Unknown Rx pen needle, diabetic 31 gauge x #100 ea 04/17/24 07/02/24 Unknown Rx 5/16 (Pen Needle) insulin glargine 100 unit/mL 20 unit (0.2 mL) SUBCUT QAM #10 mL 04/23/24 07/02/24 Unknown Rx subcutaneous solution (Lantus U-100 Insulin) montelukast 10 mg tablet See Rx Instructions .Route 05/25/24 07/02/24 Unknown Rx .COMPLEX #30 tabs ezetimibe 10 mg tablet See Rx Instructions .Route 06/11/24 07/02/24 Unknown Rx .COMPLEX #30 tabs bupropion HCl 150 mg 24 hr tablet, 150 mg PO QAM #30 tabs 06/20/24 07/02/24 Unknown Rx extended release (Wellbutrin XL) lisinopril 20 mg tablet See Rx Instructions .Route 06/20/24 07/02/24 Unknown Rx .COMPLEX #90 tabs nitroglycerin 0.3 mg sublingual 0.3 mg sublingual Q5M PRN chest 06/20/24 07/02/24 Unknown Rx tablet pain #20 tabs trazodone 100 mg tablet See Rx Instructions .Route 06/20/24 07/02/24 Unknown Rx .COMPLEX #90 tabs buspirone 10 mg tablet See Rx Instructions .Route 07/02/24 07/02/24 Unknown Rx .COMPLEX #180 tabs Allergies Allergy/AdvReac Type Severity Reaction Status Date / Time Penicillins Allergy Intermediate Unknown Verified 07/02/24 12:16 Xynhlnh-QII-QvX Reductase Allergy body aches Verified 07/02/24 12:16 Inhibitor codeine AdvReac Mild constipatio Verified 07/02/24 12:16 n PFSH Acute PFSH: Medical History Hyperlipidemia Enrolled in chronic care management Fatty liver Vitamin D deficiency History of melanoma 2022 Arthropathy of left hip Obstructive sleep apnea Hypertension Type 2 diabetes mellitus Surgical History History of colonoscopy 04/07/21 6mm polyp and diverticulosis S/P triple vessel bypass 2016 Family History Grandmother Rheumatoid arthritis Mother Rheumatoid arthritis Father Lung cancer Social History Smoking and tobacco/nicotine status: current every day tobacco/nicotine user cigarettes Packs smoked per day: 0.5 Years cigarettes smoked: 50 Alcohol intake: current Alcohol intake frequency: 3 or more drinks per day Alcohol type: beer Substance/Drug Use: never Adopted: No Lives independently: Yes Household members: spouse Marital status: Vitals/I&O/Wt Last Vital Signs Temp 98.3 F 07/11/24 12:44 Pulse 72 07/11/24 12:44 Resp 16 07/11/24 12:44 BP 131/71 07/11/24 12:44 Pulse Ox 97 07/11/24 12:44 O2 Del Method Room Air 07/11/24 12:44 Physical Exam Narrative: NIH score = 0 The patient is alert and oriented x 3. Speech fluent. Head normocephalic. Neck supple. Cranial nerves II through XII intact. Pupils 3 mm round reactive to light and accommodation. Extraocular movements intact. Motor testing 5/5 bilaterally. There were no nystagmus. There was no ataxia on brqc-nndz-[id number] maneuver or buhvnw-tswa-mrwpda maneuver. There was no drift. Sensory examination was intact to touch. There was no extinction on double sensory stimulation. Throat clear. Lungs clear. Heart regular rhythm and rate. Extremities were negative for cyanosis or edema. Data 07/11/24 13:03 07/11/24 13:03 A&P Assessment and plan (1) Vertigo: Impression: 1. Vertigo described as feeling off balance associated with numbness and tingling down both arms and shortness of breath and chest pain with or without exertion which began 5 days prior to the patient presented to the [facility] emergency department on 07/11/2024. 2. History of heart disease status post coronary artery bypass graft x 3 in the past 3. Hypertension 4. Type 2 diabetes mellitus, insulin requiring 5. Hyperlipidemia 6. Moderate calcified plaque in the intracranial carotid arteries and distal vertebral arteries reported on noncontrast head CT 07/11/2024 Plan: 1. Follow-up results of CT angiogram of the head and neck performed on 07/11/2024 2. Recommend cardiac evaluation for complaints of chest pain with shortness of breath 3. Continue aspirin and cholesterol-lowering agent per NIH stroke protocol 4. Vital signs and neurochecks per NIH stroke protocol 5. Recommend admitting patient to cardiac telemetry monitoring 6. Stroke education/stroke pamphlet for patient and family 7. Occupational Therapy and physical therapy consults for vertigo and balance issues 8. Fall precautions 9. Recommend obtaining noncontrast head MRI to assess for posterior circulation stroke PDMP PDMP Reviewed: Not Reviewed Consult Attestations Medical Necessity Statement: The patient was evaluated by neurology for acute care/code stroke emergency department room #10 Coding Level of Care Code 32852 Diagnoses Vertigo R42
[2024-07-11 14:12] LABS: Bacteria Urine None Seen /hpf; Hyaline Casts Urine 0-4 /lpf; RBC Urine 0-2 /hpf (0-2); Squamous Epithelial Cell Urine 0-5 /hpf (0-5); WBC Urine 0-5 /hpf (0-5)
[2024-07-11 14:18] LABS: Amphetamines Screen Urine Negative (Negative); Barbiturates Screen Urine Negative (Negative); Benzodiazepines Screen Urine Negative (Negative); Cocaine Screen Urine Negative (Negative); Opiate Screen Urine Negative (Negative); PCP Screen Urine Negative (Negative); THC Screen Urine Negative (Negative)
[2024-07-11 14:21] LABS: Add Urine Microscopic? YES; Bilirubin Urine Neg (Negative); Blood Urine Neg (Negative); Glucose Urine UA Norm (Normal); Ketones Urine Negative (Negative); Leukocyte Esterase Urine Negative (Negative); Nitrate Urine Negative (Negative); Protein Urine Neg (Negative); Specific Gravity, Urine 1.005 (1.005-1.030); Urine Appearance Clear (CLEAR); Urine Color Yellow (Yellow); Urobilinogen Urine Norm (Negative); pH Urine 6.5 (5-7)
[2024-07-11 14:45] LABS: INR 0.89 (0.8-1.2); Partial Thromboplastin Time 27.5 SECONDS (23.9-36.7)
[2024-07-11 14:51] LABS: Troponin(5th) Baseline 11 ng/L (0-15)
[2024-07-11 14:56] LABS: Alanine Aminotransferase 34 U/L (0-41); Albumin Level 4.4 g/dL (3.5-5.2); Alkaline Phosphatase 87 U/L (40-130); Blood Urea Nitrogen 13 mg/dL (8-23); Calcium 9.1 mg/dL (8.5-10.5); Carbon Dioxide 26 mmol/L (22-29); Chloride 95 mmol/L (98-107); Globulin 2.7 g/dL (1.3-4.6); Glucose 158 mg/dL (65-115); Osmolality Calculated 277 mOsm/kg (285-295); Sodium 132 mmol/L (136-145); Total Bilirubin 0.4 mg/dL (0.15-1.2); Total Protein 7.1 g/dL (6.6-8.7)
[2024-07-11 14:57] LABS: Anion Gap 15.2 (5-19); Aspartate Amino Transferase 22 U/L (0-40); Potassium 4.2 mmol/L (3.5-5.1)
[2024-07-11 15:00] LABS: NT Pro B Type Natriuretic Pept 189 pg/mL (0-125)
--- NOTE | 2024-07-11 15:28 | ECG_ITS ---
[facility] 2024[facility]11 Pat Name: Cristiana Marinelli Department: Room: Gender: Male [employer]: : 1955 Requested By: Alma Ybarra Order Number: [id number] Reading MD: RUPESH HARKINS Measurements Intervals [place] Rate: 63 P: 34 MN: 190 QRS: -37 QRSD: 111 T: 30 QT: 409 QTc: 419 Interpretive Statements SINUS RHYTHM LEFT AXIS DEVIATION [QRS AXIS < -30] PATTERN CONSISTENT WITH PULMONARY DISEASE INCOMPLETE RIGHT BUNDLE BRANCH BLOCK [90+ ms QRS DURATION, TERMINAL R IN V1/V2, 40+ ms S IN I/aVL/V4/V5/V6] Compared to ECG 07/11/2024 12:52:44 No significant changes Electronically Signed On 07-15-2024 21:54:37 CDT by RUPESH HARKINS [email or web address]
[2024-07-11 15:41] LABS: Troponin 5 2HR 11.64 ng/L (0-15); Troponin 5 2HR Delta 0.64 ABS# (0-10)
--- NOTE | 2024-07-11 17:53 | PM.HP ---
Providers/Chief Complaint Admitting Physician: Jovita donahue MD Primary Care Provider: FLAKO Alejo Chief Complaint: Dizzy History of Present Illness Cristiana Marinelli is a 69 year old male with past medical history of hypertension, CABG, type 2 diabetes mellitus presents to the ER today with ongoing dizziness. As per the patient he has been having dizziness for over a week to 10 days which gets worse on ambulation along with difficulty in breathing. Today he started feeling lightheaded along with tingling and numbness in his arms so he presented to the ER. At first code stroke was called and patient was evaluated by neurologist. Decision was made against IV thrombolytics. As per the patient he has been having dizziness more so on getting up from sitting position over last 1 week to 10 days along with difficulty in breathing which gets worse on minimal ambulation. Currently he gets out of breath on walking 10 to 15 feet. Complains of occasional orthopnea mostly noticeable 3 days. Patient is a current smoker. Follows up with PCP. Has not followed up with cardiology since this CABG x 3 in 2016. Denies any recreational drug use. Complains of occasional chest pain on minimal exertion. Review of Systems General: Reports: 10 or more systems reviewed and unremarkable except in HPI and below Const: Denies: fever(s), chills or body aches Eyes: Denies: change in vision, blurry vision or photophobia ENMT: Reports: hoarseness; Denies: throat pain, enlarged tonsils, odynophagia or nasal congestion Card: Denies: chest pain, palpitations, irregular heart rhythm, edema, swelling of feet/ankles, lightheadedness, pre-syncope, dyspnea on exertion or orthopnea Resp: Denies: dyspnea, productive cough, non-productive cough, wheezing, stridor, pain on inspiration, change in phlegm color, hemoptysis or chest congestion GI: Denies: abdominal pain, nausea, vomiting, hematemesis, coffee ground emesis, dysphagia, heartburn, diarrhea, constipation, GI cramping, change in stool character, hematochezia or melena : Denies: flank pain, dysuria, urinary frequency, urinary urgency, urinary hesitancy or hematuria Musc: Denies: neck pain, back pain, extremity pain, joint swelling, joint warmth or deformity Neuro: Denies: headache(s), numbness in extremities, weakness in extremities, sensory changes, difficulty walking, frequent falls, dizziness, vertigo, behavioral changes, Slurred speech present or seizure-like activity Psych: Denies: anxiety, depression, suicidal ideation or homicidal ideation Endo: Denies: polyuria, polydipsia, tired all the time, cold intolerance or hot flashes Eliseo/Lymph: Denies: easy bruising or easy bleeding Medications/Allergies Home Medications ?Medication ?Instructions ?Recorded ?Confirmed ?Last Taken ?Type aspirin 81 mg tablet,delayed 81 mg PO DAILY 02/04/23 07/11/24 07/11/24 History release (Adult Aspirin Regimen) blood sugar diagnostic (Blood #50 ea 12/14/23 07/11/24 Unknown Rx Glucose Test strips) C-PAP with auto titrate 5-12 cm #1 ea 12/19/23 07/11/24 Unknown Rx water pressure blood-glucose meter #1 ea 01/03/24 07/11/24 Unknown Rx lancets #200 ea 01/03/24 07/11/24 Unknown Rx blood-glucose meter (Blood Glucose #1 ea 01/12/24 07/11/24 Unknown Rx Monitoring kit) blood sugar diagnostic (Blood #200 ea 02/06/24 07/11/24 Unknown Rx Glucose Test strips) tramadol 50 mg tablet 50 mg PO TID PRN pain #90 tabs 03/01/24 07/11/24 Unknown Rx lancets 31 gauge #100 ea 03/02/24 07/11/24 Unknown Rx pen needle, diabetic 31 gauge x #100 ea 04/17/24 07/11/24 Unknown Rx 5/16 (Pen Needle) bupropion HCl 150 mg 24 hr tablet, 150 mg PO QAM #30 tabs 06/20/24 07/11/24 Unknown Rx extended release (Wellbutrin XL) buspirone 10 mg tablet 10 mg PO BID 07/11/24 07/11/24 07/11/24 History carvedilol 3.125 mg tablet 3.125 mg PO BID 07/11/24 07/11/24 07/11/24 History glimepiride 4 mg tablet 4 mg PO BID 07/11/24 07/11/24 07/11/24 History insulin glargine 100 unit/mL 15 unit SUBCUT QAM 07/11/24 07/11/24 07/11/24 History subcutaneous solution (Lantus U-100 Insulin) lisinopril 20 mg tablet 20 mg PO DAILY 07/11/24 07/11/24 07/11/24 History montelukast 10 mg tablet 10 mg PO DAILY 07/11/24 07/11/24 07/11/24 History nitroglycerin 0.4 mg sublingual See Rx Instructions .Route .COMPLEX 07/11/24 07/11/24 Unknown History tablet sitagliptin phosphate 100 mg 100 mg PO DAILY 07/11/24 07/11/24 07/11/24 History tablet (Januvia) trazodone 100 mg tablet 100 mg PO BEDTIME 07/11/24 07/11/24 07/10/24 History Allergies Allergy/AdvReac Type Severity Reaction Status Date / Time Penicillins Allergy Intermediate Unknown Verified 07/02/24 12:16 [id number]-ScZ Reductase Allergy body aches Verified 07/02/24 12:16 Inhibitor codeine AdvReac Mild constipatio Verified 07/02/24 12:16 n PFSH Acute PFSH: Medical History (Updated 07/12/24 @ 11:45 by Jovita Donahue MD) 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 Hyperlipidemia Enrolled in chronic care management Fatty liver Vitamin D deficiency History of melanoma 2022 Arthropathy of left hip Obstructive sleep apnea Hypertension Type 2 diabetes mellitus Surgical History (Updated 07/12/24 @ 11:45 by Jovita Donahue MD) History of colonoscopy 04/07/21 6mm polyp and diverticulosis S/P triple vessel bypass 2016 Family History Grandmother Rheumatoid arthritis Mother Rheumatoid arthritis Father Lung cancer Social History Smoking and tobacco/nicotine status: current every day tobacco/nicotine user cigarettes Packs smoked per day: 0.5 Years cigarettes smoked: 50 Alcohol intake: current Alcohol intake frequency: 3 or more drinks per day Alcohol type: beer Substance/Drug Use: never Adopted: No Lives independently: Yes Household members: spouse Marital status: Vitals/I&O/Wt Last Vital Signs Temp 98.3 F 07/11/24 12:44 Pulse 71 07/11/24 17:40 Resp 17 07/11/24 15:30 BP 129/75 07/11/24 17:40 Pulse Ox 95 07/11/24 17:40 O2 Del Method Room Air 07/11/24 12:44 07/11/24 07/11/24 07/11/24 06:59 14:59 22:59 Output Total 650 / 650 Balance -650 / -650 Weight last 48 hrs Weight 126.099 kg Data 07/12/24 04:40 07/12/24 04:40 A&P Assessment and plan (1) Dyspnea on exertion: (2) Unstable angina: (3) 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: (4) Type 2 diabetes mellitus: Qualifiers: Diabetes mellitus custodial insulin use: without long wall shear operator use Diabetes mellitus complication status: without complication Qualified Code(s): E11.9 - Type 2 diabetes mellitus without complications (5) Hypertension: Qualifiers: Hypertension type: unspecified Qualified Code(s): I10 - Essential (primary) hypertension (6) Hyperlipidemia: (7) Dizziness: Plan 69-year-old gentleman with past medical history of CABG, diabetes and hypertension presents to the ER with dizziness and numbness getting worse over last 10 days associated with dyspnea on exertion worsening over last 10 days with occasional episodes of orthopnea and chest pain consistent with unstable angina. Unstable angina: History of CABG. Has not followed with cardiology since CABG. Check troponin cycled. Check echocardiogram. Will plan for Lexiscan stress test in AM. N.p.o. after midnight. Continue with aspirin, statin, beta-jerel. Check A1c, lipid panel. Shortness of breath: Dyspnea on exertion. Could be an angina equivalent. Cannot rule out mild congestive heart failure. Echocardiogram as above. Further treatment as per echocardiogram results. Will consult cardiology if Lexiscan stress test positive. Type 2 diabetes mellitus: Continue with home dose of Lantus. Sliding scale. Hold off on OHA. Hypertension: Goal blood pressure less than 140/90 MAG. Continue with home dose of Coreg and lisinopril for now. Uptitrate as needed. Dizziness/vertigo: Code stroke called in ER. Not a candidate for IV thrombolytics as per neurology. Appreciate recommendations. PT/OT/speech evaluation. Echocardiogram as above. Full code Cardiac carb consistent diet, n.p.o. after midnight. Heparin 5000 every 12 hourly for DVT prophylaxis. 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
--- NOTE | 2024-07-11 18:45 | ECG_ITS ---
[facility] Test Date: 2024-07-12 Pat Name: Cristiana Marinelli Department: Room: 259 Gender: Male Ramp Jockey: : 1955 Requested By: Jovita Donahue Order Number: [id number] Tracy MD: Camacho Ceja M.D. Interpretive Statements LEXISCAN: Procedure: At the baseline, the blood pressure was 138/69 mmHg with a heart rate of 69 bpm. The electrocardiogram showed normal sinus rhythm, normal axis with normal ST and T's. The Lexiscan was infused over a period of 20 seconds. A total of 0.4 mg of Lexiscan was infused. The stress phase was continued for a total of 5 minutes. Heart rate was at the end of stress phase was 88 bpm and a blood pressure of 130/67 mmHg. The EKG at the peak infusion revealed normal sinus rhythm with no significant ST-T wave changes. Sestamibi was injected 20 seconds after the Lexiscan infusion. Blood pressure at the end of recovery phase was 136/67 mmHg with a heart rate of 85 bpm. Conclusion: 1. Normal EKG response to Lexiscan infusion 2. No Lexiscan induced chest pain or cardiac arrhythmia. 3. Normal blood pressure and heart rate response. 4. Sestamibi/sestamibi perfusion scan pending; see separate report. Electronically Signed On 07-28-2024 21:35:26 CDT by Camacho Ceja M.D. [id number]
--- NOTE | 2024-07-11 19:25 | ECG_ITS ---
[facility] Date: 2024-07-11 Pat Name: Cristiana Marinelli Department: Room: 259 Gender: Male Clinical Trial Data Manager: : 1955 Requested By: Alma Ybarra Order Number: [id number] Tracy MD: RUPESH HARKINS Measurements Intervals [place] Rate: 72 P: 38 FL: 212 QRS: -47 QRSD: 110 T: 16 QT: 387 QTc: 426 Interpretive Statements SINUS RHYTHM WITH FIRST DEGREE AV BLOCK PATTERN CONSISTENT WITH PULMONARY DISEASE INCOMPLETE RIGHT BUNDLE BRANCH BLOCK [90+ ms QRS DURATION, TERMINAL R IN V1/V2, 40+ ms S IN I/aVL/V4/V5/V6] LEFT ANTERIOR FASCICULAR BLOCK [QRS AXIS <= -45, QR IN I, RS IN II] MINIMAL ST DEPRESSION [0.025+ mV ST DEPRESSION] Compared to ECG 07/11/2024 15:04:51 First degree AV block now present Left anterior fascicular block now present ST (T wave) deviation now present Left-axis deviation no longer present Electronically Signed On 07-15-2024 21:55:01 CDT by RUPESH HARKINS [email or web address] [id number]
[2024-07-11 19:44] LABS: Troponin 5 6HR 10.07 ng/L (0-15)
[2024-07-11 19:45] LABS: Troponin 5 6HR Delta -0.93 ng/L (0-12)
[2024-07-11] MEDS: trazodone 100 mg Tablet PO (21:35)
[2024-07-11] MEDS: BuSPIRONE 10 mg Tablet PO (21:35)
[2024-07-11] MEDS: carvedilol 3.125 mg Tablet PO (21:35)
[2024-07-11 21:52] LABS: Glucose Point of Care 167 mg/dL (70-110)
[2024-07-11] MEDS: insulin lispro 100 unit/1 mL SUBCUT (22:21)
[2024-07-12] VITALS (10 sets, daily range): BP systolic 134–164; BP diastolic 67–90; PULSE 56–81; RESP 16–17; TEMP 36.6–37.1; O2SAT 96–99; BMI 26.2
[2024-07-12 04:56] LABS: Basophils % 0.4 %; Eosinophils # 0.3 10^3/uL (0.0-0.8); Hematocrit 46.7 % (37-53); Lymphocytes # 1.8 10^3/uL (0.8-4.8); Lymphocytes % 23.8 %; Mean Corpuscular HGB Conc 33.8 g/dL (30-55); Mean Corpuscular Volume 88.6 fl (82-101); Mean Platelet Volume 11.9 fL (7.4-10.4); Monocytes # 0.6 10^3/uL (0.2-0.9); Monocytes % 8.6 %; Neutrophils # 4.69 10^3/uL (1.8-7.7); Neutrophils % 62.9 %; Nucleated Red Blood Cells % 0 %; Platelet Count 150 10^3/cmm (157-399); Red Blood Count 5.27 10^6/uL (3.85-5.65); Red Cell Distribution Width 14.6 % (12.1-15.1); White Blood Count 7.45 10^3/uL (3.29-11.43)
[2024-07-12 05:15] LABS: Alanine Aminotransferase 32 U/L (0-41); Albumin Level 4.1 g/dL (3.5-5.2); Alkaline Phosphatase 66 U/L (40-130); Anion Gap 14.6 (5-19); Aspartate Amino Transferase 17 U/L (0-40); Blood Urea Nitrogen 16 mg/dL (8-23); Calcium 8.9 mg/dL (8.5-10.5); Carbon Dioxide 24 mmol/L (22-29); Chloride 104 mmol/L (98-107); Creatinine Clr Calc Pharmacy 71.6025; Globulin 2.4 g/dL (1.3-4.6); Glucose 158 mg/dL (65-115); Osmolality Calculated 290 mOsm/kg (285-295); Potassium 4.6 mmol/L (3.5-5.1); Sodium 138 mmol/L (136-145); Total Bilirubin 0.4 mg/dL (0.15-1.2); Total Protein 6.5 g/dL (6.6-8.7)
[2024-07-12] MEDS: buPROPion XL (24 HR) 150 mg Tablet PO (05:44)
[2024-07-12] MEDS: regadenoson 0.4 Mg/5 ml Syringe IVP (06:54)
[2024-07-12 07:30] LABS: Glucose Point of Care 201 mg/dL (70-110)
[2024-07-12] MEDS: BuSPIRONE 10 mg Tablet PO ×2 (09:00→17:52)
[2024-07-12] MEDS: carvedilol 3.125 mg Tablet PO ×2 (09:00→17:52)
--- NOTE | 2024-07-12 09:51 | PC.CHAP ---
Pastoral Care Encounter/Spiritual Assessment Type of Contact [] Declined bee robber visit [] Patient/Family/Request visit [] Outpatient visit [] Follow-up visit [] Physician referral [] Code/Alert [x] Routine visit [] Staff referral [] Actively dying [] Patient sleeping [] Family support [] [] Out of room [] Palliative care [] [] Receiving care in room [] Pre-surgical visit [] Trauma [] Long length of stay [] ICU visit [] Other: Relational/Emotional Strength [x] Patient feels connected with others/family/visitors/staff [] Distress [] Loneliness/isolation [] Abandonment Spirituality of Patient [x] Person of Ina [] Attends Catholic of their Ina [x] Believes in Prayer [] Reads Bible or Baptism materials [] There are Spiritual issues to be addressed Field Manager Interventions [x] Prayer [x] Active listening [] Non-anxious presence [x] Spiritual/emotional support [] Crisis/trauma care [] Spiritual counseling [] Bereavement support [] Provided bereavement packet [] Provided Bible/devotional materials [] Provided toy/stuffed animal, coloring book to patient or family member [] Provided Communion [] Anointing/[place] [] Salvation [x] Completed spiritual assessment [] Other: Impact on Illness or Injury [] Angry [] Fearful [] Anxious [] Often cries [] Exhaustion [] Unable to work [] Unable to attend hinduism [] Unable to walk/stand [] Unable to read [] Unable to drive [] Unable to eat/drink [] Unable to sleep [] Unable to be with family [] Patient intubated [] Other: Summary Time spent with patient 5 min
[2024-07-12] MEDS: insulin glargine 100 units/1 mL 15 UNIT SUBCUT (10:45)
[2024-07-12] MEDS: aspirin 81 mg EC Tablet PO (10:45)
[2024-07-12 11:28] LABS: Glucose Point of Care 317 mg/dL (70-110)
--- NOTE | 2024-07-12 11:47 | P.CONIM_ITS ---
<Statement entered by Camacho Ceja M.D - 07/13/24 12:47> Patient was cared for in conjunction with an advanced practice practitioner.? I reviewed the chart and all pertinent data including imaging, telemetry, and laboratory results.? I discussed the patient in detail with the advanced practice practitioner.? Please see? their note for progress note, testing results and agreed upon plan of care for the patient. Patient has significantly abnormal stress test showing large areas of ischemia in distribution of all 3 coronary arteries. Plan for coronary angiogram with possible PCI tomorrow. Risks and benefits of the procedure discussed with patient. He understands these and wants to proceed. NPO past midnight Thank you for involving us with care of this patient. Please call with questions. Providers/Reason For Consult 2 Consulting Physician/Specialty*: Dr. Ceja Reason for Consult*: Abnormal stress test Requesting Physician: Dr. Donahue Attending Physician: Jovita Donahue MD Primary Care Provider: FLAKO Alejo History of Present Illness History of Present Illness Cristiana Marinelli is a 69 year old male who originally came to the emergency room for severe dizziness that have been going on for months but got worse the past week. He did have some nausea with this. He denies any chest pain or shortness of breath at this time. CT of the head was done that showed no acute intracranial hemorrhage or edema. Acute sinusitis was seen. CTA of the neck showed less than 50% left ICA and right ICA approximately 58% stenosis. He states he has a history of CABG in the past around 2015. He also has a history of high blood pressure and type 2 diabetes as well as hyperlipidemia. Neurology did see the patient as well. Apparently, he has told them he did have some chest pain and shorntess of breath when he had his episode of vertigo. He seems to be somewhat of a poor historian. Creatinine is normal. Troponin was negative. Pro bnp was slightly elevated at 189. No signs of heart failure on my exam. EKG showed sinus rhtyhm without acute ST or t wave abnormalities. He did have a right bundle branch block seen, which is new. Stress test was performed that showed abnormal imaging with large area of ischemia in all 3 coronary arteries with elevated TID ratio. EF was normal. He takes coreg and aspirin. Current vital signs are stable. Review of Systems 2 Narrative: Consitutional: denies fever, chills, body aches, or changes in appetite, denies abnormal weight loss, reports vertigo Card: Denies chest pain, palpitations, irregular heart rhythm, edema, syncope, shortness of breath, orthopnea, leg pain with exertion Resp: Denies shortness of breath, denies hemoptysis, denies cough GI: denies abdominal pain, denies nausea or voimting, denies blood in stool Musc: Denies extremity pain, denies limited range of motion or recent injury Skin: Denies rash, lesions, or wounds, denies changes to skin color Neuro: reports dizziness and vertigo with activity Eliseo: Denies easy bruiding/bleeding Medications/Allergies Home Medications ?Medication ?Instructions ?Recorded ?Confirmed ?Last Taken ?Type aspirin 81 mg tablet,delayed 81 mg PO DAILY 02/04/23 0 07/11/24 07/11/24 History release (Adult Aspirin Regimen) blood sugar diagnostic (Blood #50 ea 12/14/23 07/11/24 Unknown Rx Glucose Test strips) C-PAP with auto titrate 5-12 cm #1 ea 12/19/23 5 Unknown Rx water pressure blood-glucose meter #1 ea 01/03/24 07/11/24 Unkn own Rx lancets #200 ea 01/03/24 07/11/24 Un known Rx blood-glucose meter (Blood Glucose #1 ea 01/12/2406/05 Unknown Rx Monitoring kit) blood sugar diagnostic (Blood #200 ea 02/06/24 5 Unknown Rx Glucose Test strips) tramadol 50 mg tablet 50 mg PO TID PRN pain #90 ta bs 03/01/24 07/11/24 Unknown Rx lancets 31 gauge #100 ea 03/02/24 07/11/24 Un known Rx pen needle, diabetic 31 gauge x #100 ea 04/17/2407/11 Unknown Rx 5/16 (Pen Needle) bupropion HCl 150 mg 24 hr tablet, 150 mg PO QAM #30 t abs 06/20/24 07/11/24 Unknown Rx extended release (Wellbutrin XL) buspirone 10 mg tablet 10 mg PO BID 07/11/2407/11/24 History carvedilol 3.125 mg tablet 3.125 mg PO BID 07/11/2407/11/24 History glimepiride 4 mg tablet 4 mg PO BID 07/11/24 5 07/11/24 History insulin glargine 100 unit/mL 15 unit SUBCUT QAM 07/11/24 07/11/24 History subcutaneous solution (Lantus U-100 Insulin) lisinopril 20 mg tablet 20 mg PO DAILY 07/11/2406/0507/11/24 History montelukast 10 mg tablet 10 mg PO DAILY 07/11/2406/0507/11/24 History nitroglycerin 0.4 mg sublingual See Rx Instructions .R oute .COMPLEX 07/11/24 07/11/24 Unknown History tablet sitagliptin phosphate 100 mg 100 mg PO DAILY 07/11/24 07/11/24 07/11/24 History tablet (Januvia) trazodone 100 mg tablet 100 mg PO BEDTIME 07/11/24 0 07/11/24 07/10/24 History Allergies Allergy/AdvReac Type Severity Reaction Status Date / Time Penicillins Allergy Intermediate Unknown Verified 07/02/24 12:16 Eastohh-JMO-CrH Reductase Allergy body aches Verified 07/02/24 12:16 Inhibitor codeine AdvReac Mild constipatio Verified 07/02/24 12:16 n Current Medications Generic Name Dose Route Start Last Admin Trade Name Freq PRN Reason Stop Dose Admin Aspirin 81 mg 07/12/24 09:00 07/12/24 10:45 Aspirin 81 Mg Ec Tablet PO 81 mg DAILY WHITLEY Administration Bupropion HCl 150 mg 07/12/24 06:00 07/12/24 05:44 Bupropion Xl (24 Hr) 150 Mg Tablet PO 150 mg QAM WHITLEY Administration Buspirone HCl 10 mg 07/11/24 21:22 07/12/24 09:00 Buspirone 10 Mg Tablet PO 10 mg BID WHITLEY Administration Carvedilol 3.125 mg 07/11/24 21:22 07/12/24 09:00 Carvedilol 3.125 Mg Tablet PO 3.125 mg BID WHITLEY Administration Insulin Glargine 15 unit 07/12/24 06:00 07/12/24 10:45 Insulin Glargine 100 Units/1 Ml SUBCUT 15 unit QAM WHITLEY Administration Insulin Human Lispro 0 unit 07/11/24 21:22 07/12/24 10:48 Insulin Lispro 100 Unit/1 Ml SUBCUT Not Given WM&BEDTIME WHITLEY Protocol Trazodone HCl 100 mg 07/11/24 21:22 07/11/24 21:35 Trazodone 100 Mg Tablet PO 100 mg BEDTIME WHITLEY Administration PFSH Acute 2 PFSH: Medical History (Updated 07/12/24 @ 11:55 by Mona Vega NP) 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 Hyperlipidemia Enrolled in chronic care management Fatty liver Vitamin D deficiency History of melanoma 2022 Arthropathy of left hip Obstructive sleep apnea Hypertension Type 2 diabetes mellitus Surgical History (Updated 07/12/24 @ 11:45 by Jovita Donahue MD) History of colonoscopy 04/07/21 6mm polyp and diverticulosis S/P triple vessel bypass 2016 Family History Grandmother Rheumatoid arthritis Mother Rheumatoid arthritis Father Lung cancer Social History Smoking and tobacco/nicotine status: current every day tobacco/nicotine user cigarettes Packs smoked per day: 0.5 Years cigarettes smoked: 50 Alcohol intake: current Alcohol intake frequency: 3 or more drinks per day Alcohol type: beer Substance/Drug Use: never Adopted: No Lives independently: Yes Household members: spouse Marital status: Vitals/I&O/Wt Last Vital Signs Temp 98.0 F 07/12/24 08:00 Pulse 69 07/12/24 08:00 Resp 16 07/12/24 08:00 BP 145/89 07/12/24 08:00 Pulse Ox 99 07/12/24 08:00 O2 Del Method Room Air 07/12/24 08:00 FiO2 21 07/11/24 22:15 07/11/24 07/12/24 07/12/24 22:59 06:59 14:59 Intake Total 480 / 480 480 / 480 Output Total 200 / 850 100 / 950 Balance -200 / -850 380 / -470 480 / 480 Weight last 48 hrs Weight 178 lb Weight 178 lb Weight 278 lb Physical Exam 2 Narrative: General: No apparent distress, healthy appearing, well nourished HENMT: normoceophalic Neck: No carotid bruit bilaterally Muskuloskeletal: Full ROM Lymphatic: no lymphedema noted Respiratory: Normal respiratory effort, clear to auscultation bilaterally throughout all lung holcomb, no use of accessory muscles Cardio: No JVD, regular rate, regular rhythm, S1 S2 normal, no murmurs, peripheral pulses 2+ radial palpated bilaterally GI: Normal to inspection, nondistended Extremities: Full ROM, normal, normal capillary refill, no cyanosis or edema Neuro: Alert and oriented x4, no focal motor deficits Psych: Affect normal, denies suicidal ideation, mental status grossly normal Skin: No rashes or lesions noted, no wounds Data 07/12/24 04:40 07/12/24 04:40 A&P Assessment and plan (1) S/P triple vessel bypass: (2) Hypertension: Qualifiers: Hypertension type: unspecified Qualified Code(s): I10 - Essential (primary) hypertension (3) Hyperlipidemia: (4) Dyspnea on exertion: (5) Abnormal stress test: Plan At this time patient is stable. With history of chest discomfort, open heart surgery, and abnormal stress test, patient most likely will require and angiogram. Echo is being performed as well. I did discuss this with the patient. This will possibly be done tomorrow. Thank you, Dr. Donahue, for allowing us to care for this very pleasant 69 year old gentleman. PDMP PDMP Reviewed: Not Reviewed Consult Attestations 2 Medical Necessity Statement: Deferred to primary. Coding Level of Care Code Acute Code for Chg Fwd Diagnoses S/P triple vessel bypass Z95.1 Hypertension, unspecified type I10 Hypertension type: unspecified Hyperlipidemia E78.5 Dyspnea on exertion R06.09 Abnormal stress test R94.39
--- NOTE | 2024-07-12 11:50 | P.PN_ITS ---
Subjective 2 Subjective: Patient underwent stress test today which was abnormal, details below. Vitals/I&O/Wt Last Vital Signs Temp 98.0 F 07/12/24 08:00 Pulse 69 07/12/24 08:00 Resp 16 07/12/24 08:00 BP 145/89 07/12/24 08:00 Pulse Ox 99 07/12/24 08:00 O2 Del Method Room Air 07/12/24 08:00 FiO2 21 07/11/24 22:15 07/11/24 07/12/24 07/12/24 22:59 06:59 14:59 Intake Total 480 / 480 480 / 480 Output Total 200 / 850 100 / 950 Balance -200 / -850 380 / -470 480 / 480 Weight last 48 hrs Weight 80.739 kg Weight 80.739 kg Weight 126.099 kg Physical Exam 2 Narrative: General: No acute distress, AO x3 HEENT: PERRLA, pupils bilaterally equal and reactive, pallors not present Chest: Normal vesicular breath sounds, no added sounds, equal good air entry bilaterally CVS: S1-S2 regular, no murmurs, no tachycardia, no gallops, no rubs Abdomen: Soft, nontender, no organomegaly, bowel sounds present Neuro: No focal deficits, no facial deformity, AO x3, power 5/5 in all limbs Data 07/12/24 04:40 07/12/24 04:40 A&P Assessment and plan (1) Dyspnea on exertion: (2) Unstable angina: (3) 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: (4) Type 2 diabetes mellitus: Qualifiers: 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: without penitentiary use Diabetes mellitus complication status: without complication Qualified Code(s): E11.9 - Type 2 diabetes mellitus without complications (5) Hypertension: Qualifiers: Hypertension type: unspecified Qualified Code(s): I10 - Essential (primary) hypertension (6) Hyperlipidemia: (7) Dizziness: Plan 69-year-old gentleman with past medical history of CABG, diabetes and hypertension presents to the ER with dizziness and numbness getting worse over last 10 days associated with dyspnea on exertion worsening over last 10 days with occasional episodes of orthopnea and chest pain consistent with unstable angina. Unstable angina: History of CABG. Has not followed with cardiology since CABG. Check troponin cycled. Check echocardiogram. Will plan for Lexiscan stress test in AM. N.p.o. after midnight. Continue with aspirin, statin, beta-jerel. Check A1c, lipid panel. Shortness of breath: Dyspnea on exertion. Could be an angina equivalent. Cannot rule out mild congestive heart failure. Echocardiogram as above. Further treatment as per echocardiogram results. Will consult cardiology if Lexiscan stress test positive. Type 2 diabetes mellitus: Continue with home dose of Lantus. Sliding scale. Hold off on OHA. Hypertension: Goal blood pressure less than 140/90 MAG. Continue with home dose of Coreg and lisinopril for now. Uptitrate as needed. Dizziness/vertigo: Code stroke called in ER. Not a candidate for IV thrombolytics as per neurology. Appreciate recommendations. PT/OT/speech evaluation. Echocardiogram as above. Full code Cardiac carb consistent diet, n.p.o. after midnight. Heparin 5000 every 12 hourly for DVT prophylaxis. Protonix for PUD prophylaxis July 12, 2024 Stress test completed this morning was abnormal. Ischemia in all 3 coronary artery territories. LV systolic function reportedly normal. 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 Patient is planned cardiology evaluation today, possible angiogram. 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
[2024-07-12] MEDS: insulin lispro 100 unit/1 mL SUBCUT ×3 (12:33→21:28)
[2024-07-12 16:48] LABS: Glucose Point of Care 181 mg/dL (70-110)
--- NOTE | 2024-07-12 17:58 | MR_ITS ---
WS: [id number] MRI HEAD WITHOUT CONTRAST TECHNIQUE: Sagittal T1, T2 axial, T2 axial FLAIR, axial and coronal T1 images, axial susceptibility weighted imaging, axial diffusion weighted images, and coronal T2 images were obtained. CLINICAL INFORMATION: posterior circulation stroke COMPARISON: CT 07/11/2024 FINDINGS: No evidence of restricted diffusion to suggest acute ischemia. Ventricular system and basal cisterns are patent. Mild small vessel changes. Mild parenchymal volume loss. Small vessel changes in the catina. Normal vascular flow voids at the skull base. No extra-axial fluid collections. No evidence of mass or mass effect. Mild mucosal thickening in the paranasal sinuses. Small amount of fluid in the RIGHT maxillary sinus and sphenoid sinus compatible with sinusitis. Mastoid air cells are well aerated. No hemosiderin on the susceptibly weighted images. Normal optic chiasm and pituitary infundibulum. Mild symmetric atrophy temporal lobes hippocampal formations. MR/MR head wo con* [id number] IMPRESSION: 1. No evidence of restricted diffusion to suggest acute ischemia. 2. Mild small vessel changes and mild parenchymal volume loss. 3. Small vessel changes in the catina. 4. RIGHT maxillary and sphenoid sinusitis. 5. No hemosiderin on susceptibility weighted images. 6. No other suspicious findings.
--- NOTE | 2024-07-12 18:46 | NMCV_ITS ---
NM mj perf SPECT r/s* [id number] Cristiana Marinelli Age: 69 Gender: M : 1955 Exam Date: 07/12/2024 06:24 Ordering Phys: Jovita Donahue MD Technologist: ROMULO Oconnor Exam Location: [facility] Indications: CP STRESS TEST Please see separate stress test report in [facility] for full findings IMAGE PROTOCOL Rest/Stress 1 Lexiscan Day Radiopharmaceutical Dose (mCi) Administration Site Administered by Rest: Tc-99m 10.5 IV ROMULO hRodes Sestamibi Stress:Tc-99m 32.8 IV ROMULO Oconnor Sestamipamella Rest: 12-Jul-2024 60 Discovery 630 Stress: 12-Jul-2024 30 Discovery 630 0.4mg Lexiscan. Images obtained in supine and prone position. SPECT RESULTS Technical Quality: Excellent Raw Data Analysis: Normal Image Corrections: No attenuation or motion correction applied Summed Stress Score: 21 Summed Rest Score: 2 Summed Difference Score: 19 PERFUSION FINDINGS Large area of reversible perfusion defects are seen in anterior, anterolateral, inferolateral and inferior ba. This is consistent with large area of ischemia in distribution of all 3 coronary arteries. FUNCTIONAL RESULTS (calculated via Gated SPECT) Stress Image LV EF (%): 67 Stress EDV (mL):95 TID: 1.22 Stress ESV (mL):31 FUNCTIONAL FINDINGS: There is normal left ventricular systolic function. TID is elevated. This likely represents multivessel coronary artery disease IMPRESSIONS 1. Abrormal myocardial perfusion imaging with ischemia in all 3 coronary artery territories. 2. LV systolic function is normal 3. TID ratio is elevated and is 1.22. This likely represents multivessel coronary artery disease Camacho Ceja MD (Electronically Signed) Final Date: 12 July 2024 09:46 S
[2024-07-12 21:26] LABS: Glucose Point of Care 172 mg/dL (70-110)
[2024-07-12] MEDS: trazodone 100 mg Tablet PO (21:28)
[2024-07-12] MEDS: lisinopril 20 mg Tablet PO (22:32)
[2024-07-13] VITALS (12 sets, daily range): BP systolic 108–152; BP diastolic 66–87; PULSE 57–76; RESP 15–19; TEMP 36.4–37; O2SAT 92–98
[2024-07-13] MEDS: buPROPion XL (24 HR) 150 mg Tablet PO (05:52)
[2024-07-13 06:01] LABS: Basophils % 0.4 %; Eosinophils # 0.3 10^3/uL (0.0-0.8); Hematocrit 48.4 % (37-53); Lymphocytes # 1.7 10^3/uL (0.8-4.8); Mean Corpuscular HGB Conc 33.3 g/dL (30-55); Mean Corpuscular Hemoglobin 29.7 pg (27-33); Mean Corpuscular Volume 89.1 fl (82-101); Mean Platelet Volume 12.3 fL (7.4-10.4); Monocytes # 0.7 10^3/uL (0.2-0.9); Neutrophils # 4.59 10^3/uL (1.8-7.7); Neutrophils % 63.5 %; Nucleated Red Blood Cells % 0 %; Platelet Count 148 10^3/cmm (157-399); Red Blood Count 5.43 10^6/uL (3.85-5.65); Red Cell Distribution Width 14.6 % (12.1-15.1); White Blood Count 7.23 10^3/uL (3.29-11.43)
[2024-07-13 06:20] LABS: Anion Gap 15.4 (5-19); Blood Urea Nitrogen 14 mg/dL (8-23); Calcium 8.9 mg/dL (8.5-10.5); Carbon Dioxide 23 mmol/L (22-29); Chloride 102 mmol/L (98-107); Creatinine Clr Calc Pharmacy 79.0561; Glucose 183 mg/dL (65-115); Osmolality Calculated 287 mOsm/kg (285-295); Potassium 4.4 mmol/L (3.5-5.1); Sodium 136 mmol/L (136-145)
[2024-07-13 06:32] LABS: Glucose Point of Care 202 mg/dL (70-110)
[2024-07-13] MEDS: aspirin 81 mg EC Tablet PO (08:52)
[2024-07-13] MEDS: BuSPIRONE 10 mg Tablet PO ×2 (08:52→17:41)
[2024-07-13] MEDS: lisinopril 20 mg Tablet PO (08:52)
[2024-07-13] MEDS: carvedilol 3.125 mg Tablet PO ×2 (08:52→17:41)
[2024-07-13 11:12] LABS: Glucose Point of Care 181 mg/dL (70-110)
[2024-07-13] MEDS: diphenhydrAMINE 50 mg Capsule PO (12:05)
[2024-07-13] MEDS: sodium chloride 0.9% 1,000 ML 50 ML IV (12:06)
--- NOTE | 2024-07-13 13:31 | PC.SOCIAL ---
IMM Updated Updated pt on IMM. No questions voiced. Provided pt a copy. Initialed, dated, & timed a copy & placed in chart.
--- NOTE | 2024-07-13 14:19 | W.PM.OPSUD ---
Surgery/Procedure H&P Update DATE OF PROCEDURE: July 13, 2024 DATE H&P PERFORMED: 07/12/24 H&P UPDATE INFORMATION: I have reviewed H&P completed within last 30 days, I have examined patient prior to procedure and No changes to prior documentation PREOP DIAGNOSIS: Angina/abnormal stress test/history of CABG PLANNED PROCEDURE: Operation Date: 07/13/24 14:00 Proposed Procedures p Cardiac Catheterization(Left) - Delores Craven MD PATIENT REASSESSED PRIOR TO SEDATION, WITH NO CHANGE NOTED: Yes PHYSICAL EXAM: alert, oriented x 3, clear to auscultation bilaterally, regular rate & rhythm and operative site marked AIRWAY EVAL/ANESTHESIA PLAN: ASA II, Risks, benefits & alternatives of sedation and/or procedure discussed and Patient agrees to continue as planned
--- NOTE | 2024-07-13 14:25 | P.PN_ITS ---
<Statement entered by Delores Craven MD - 07/14/24 00:37> Patient was evaluated and cared for in conjunction with an advanced practice practitioner. I personally examined the patient and reviewed the chart and all pertinent data including imaging, telemetry, and laboratory results. I discussed the patient in detail with the advanced practice practitioner. Please see their note for complete H&P testing result and agreed upon plan of care for the patient. Patient underwent left heart catheterization noted to have chronically occluded SVG to diagonal and obtuse marginal while DALL[place] to LAD was patent without significant disease, mid to distal LAD after DALL[place] insertion was patent without significant stenosis Left medical ejection fraction appeared to be normal left ventricle end- diastolic pressure was within normal limit Left main has distal 90% occlusion, LAD is chronically 100% occluded while proximal circumflex is highly calcified and torturous vessel not amendable to intervention, RCA is chronically occluded but never grafted as there is no marker GENERAL: Patient is alert, awake and oriented x3. HEART: Regular S1 and S2. No murmur, rub or gallop. LUNGS: Clear to auscultate bilaterally. CENTRAL NERVOUS SYSTEM: Grossly nonfocal. EXTREMITIES: Lower extremities with out edema bilaterally. Assessment and plan Multivessel coronary artery disease status post left heart catheterization with chronically occluded saphenous venous graft to obtuse marginal and diagonal branch Hypertension Hyperlipidemia Patient has been discussed in detail in the presence of his son visiting from [facility] we decided regarding maximal medical management if fails consider single-vessel CABG to obtuse marginal through minimally invasive approach since patient left ventricular ejection fraction preserved and not in chest pain. Continue aspirin statin beta-jerel add isosorbide mononitrate 30 mg p.o. twice daily Will reassess him in the morning stable may consider discharge Subjective 2 Subjective: Patient is doing well today. Denies chest pain or shortness of breath. The plan is for him to go to have a cath today. Creat. Is jasmin. Family is present at this time. Vitals/I&O/Wt Last Vital Signs Temp 98.2 F 07/13/24 11:00 Pulse 69 07/13/24 11:00 Resp 16 07/13/24 11:00 BP 127/81 07/13/24 11:00 Pulse Ox 96 07/13/24 11:00 O2 Del Method Room Air 07/13/24 11:00 FiO2 21 07/11/24 22:15 07/12/24 07/13/24 07/13/24 22:59 06:59 14:59 Intake Total 480 / 960 Output Total 300 / 600 Balance 180 / 360 Weight last 48 hrs Weight 175 lb 6.4 oz Weight 178 lb Weight 178 lb Weight 278 lb Physical Exam 2 Narrative: General: No apparent distress, healthy appearing, well nourished HENMT: normoceophalic Neck: No carotid bruit bilaterally Muskuloskeletal: Full ROM Lymphatic: no lymphedema noted Respiratory: Normal respiratory effort, clear to auscultation bilaterally throughout all lung holcomb, no use of accessory muscles Cardio: No JVD, regular rate, regular rhythm, S1 S2 normal, no murmurs, peripheral pulses 2+ radial palpated bilaterally GI: Normal to inspection, nondistended Extremities: Full ROM, normal, normal capillary refill, no cyanosis or edema Neuro: Alert and oriented x4, no focal motor deficits Psych: Affect normal, denies suicidal ideation, mental status grossly normal Skin: No rashes or lesions noted, no wounds Data 07/13/24 05:14 07/13/24 05:14 A&P Assessment and plan (1) S/P triple vessel bypass: (2) Hypertension: Qualifiers: Hypertension type: unspecified Qualified Code(s): I10 - Essential (primary) hypertension (3) Hyperlipidemia: (4) Dyspnea on exertion: (5) Abnormal stress test: Plan Dr. Craven will proceed with [facility] possible PCI due to abnormal stress test and chest pain. He is in agreement to proceed. PDMP PDMP Reviewed: Not Reviewed Attestations 2 Medical Necessity Statement*: Deferred to primary. Coding Level of Care Code Acute Code for Chg Fwd Diagnoses S/P triple vessel bypass Z95.1 Hypertension, unspecified type I10 Hypertension type: unspecified Hyperlipidemia E78.5 Dyspnea on exertion R06.09 Abnormal stress test R94.39
--- NOTE | 2024-07-13 15:50 | P.PCN_ITS ---
Procedure Note: Date of procedure: 07/13/24 Pre-procedure diagnosis: abn stress Post-procedure diagnosis: same Procedure: left heart cath indication : Abn stress test LM: distal LAD has 90% stenosis LAD has proximal 100% stenosis LCx appeared to be bifurcating moderate-sized in caliber vessel which has moderate in size and caliber obtuse marginal branch, it has calcified torturous ostial to proximal segment which is 90 to 95% stenotic RCA is highly calcified occluded 100% vessel not grafted D[place] to LAD is patent without significant stenosis SVG to diagonal branch is chronically occluded SVG to obtuse marginal is chronically occluded Left ventricle end-diastolic pressure is normal Left ventricle ejection fraction normal 60% Plan: Due to highly calcified nature of proximal circumflex and tortuosity it is not amenable to intervention, recommend trying medical management versus single- vessel redo CABG Coding Level of Care Code Acute Code for Chg Fwd
--- NOTE | 2024-07-13 16:09 | PC.NURSE ---
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
--- NOTE | 2024-07-13 16:09 | PC.NURSE ---
Called report to NOREEN in [facility]. All questions answered
--- NOTE | 2024-07-13 16:18 | PM.PN ---
Subjective Subjective: Forms Performed Today Findings As below. LM: distal LAD has 90% stenosis LAD has proximal 100% stenosis LCx appeared to be bifurcating moderate-sized in caliber vessel which has moderate in size and caliber obtuse marginal branch, it has calcified torturous ostial to proximal segment which is 90 to 95% stenotic RCA is highly calcified occluded 100% vessel not grafted D[place] to LAD is patent without significant stenosis SVG to diagonal branch is chronically occluded SVG to obtuse marginal is chronically occluded Left ventricle end-diastolic pressure is normal Left ventricle ejection fraction normal 60% Medications: Reviewed: Yes Vitals/I&O/Wt Last Vital Signs Temp 98.2 F 07/13/24 13:07 Pulse 69 07/13/24 13:07 Resp 16 07/13/24 13:07 BP 127/81 07/13/24 13:07 Pulse Ox 96 07/13/24 11:00 O2 Del Method Room Air 07/13/24 11:00 FiO2 21 07/11/24 22:15 Weight last 48 hrs Weight 79.56 kg Weight 80.739 kg Weight 80.739 kg Physical Exam Narrative: General: No acute distress, AO x3 HEENT: PERRLA, pupils bilaterally equal and reactive, pallors not present Chest: Normal vesicular breath sounds, no added sounds, equal good air entry bilaterally CVS: S1-S2 regular, no murmurs, no tachycardia, no gallops, no rubs Abdomen: Soft, nontender, no organomegaly, bowel sounds present Neuro: No focal deficits, no facial deformity, AO x3, power 5/5 in all limbs Data 07/13/24 05:14 07/13/24 05:14 A&P Assessment and plan (1) Dyspnea on exertion: (2) Unstable angina: (3) 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: (4) Type 2 diabetes mellitus: Qualifiers: Diabetes mellitus [facility] use: without [facility] use Diabetes mellitus complication status: without complication Qualified Code(s): E11.9 - Type 2 diabetes mellitus without complications (5) Hypertension: Qualifiers: Hypertension type: unspecified Qualified Code(s): I10 - Essential (primary) hypertension (6) Hyperlipidemia: (7) Dizziness: Plan 69-year-old gentleman with past medical history of CABG, diabetes and hypertension presents to the ER with dizziness and numbness getting worse over last 10 days associated with dyspnea on exertion worsening over last 10 days with occasional episodes of orthopnea and chest pain consistent with unstable angina. Unstable angina: History of CABG. Has not followed with cardiology since CABG. Check troponin cycled. Check echocardiogram. Will plan for Lexiscan stress test in AM. N.p.o. after midnight. Continue with aspirin, statin, beta-jerel. Check A1c, lipid panel. Shortness of breath: Dyspnea on exertion. Could be an angina equivalent. Cannot rule out mild congestive heart failure. Echocardiogram as above. Further treatment as per echocardiogram results. Will consult cardiology if Lexiscan stress test positive. Type 2 diabetes mellitus: Continue with home dose of Lantus. Sliding scale. Hold off on OHA. Hypertension: Goal blood pressure less than 140/90 MAG. Continue with home dose of Coreg and lisinopril for now. Uptitrate as needed. Dizziness/vertigo: Code stroke called in ER. Not a candidate for IV thrombolytics as per neurology. Appreciate recommendations. PT/OT/speech evaluation. Echocardiogram as above. Full code Cardiac carb consistent diet, n.p.o. after midnight. Heparin 5000 every 12 hourly for DVT prophylaxis. Protonix for PUD prophylaxis July 12, 2024 Stress test completed this morning was abnormal. Ischemia in all 3 coronary artery territories. LV systolic function reportedly normal. 3 times daily ratio of 1.2 likely key account representative of multivessel coronary artery disease. Patient is planned cardiology evaluation today, possible angiogram. [facility] MRI July 13, 2024 MRI of the head with and without any acute ischemic stroke. Coronary angiogram completed today. Showing distal LAD 90% stenosis, proximal LAD 100% stenosis. LCx calcified tortuous ostial to proximal segment which is 95% stenotic. RCA highly calcified 100% vessel not grafted. D[place] to LAD patent, SVG to diagonal chronically occluded, SVG to obtuse marginal chronically occluded. LVEF of 60%. Due to highly calcified nature of the proximal circumflex and tortuosity not amenable to intervention. Recommended medical management versus single-vessel redo CABG as outpatient. Will optimize medical management and observe over next 24 to 48 hours. 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
[2024-07-13 17:16] LABS: Glucose Point of Care 126 mg/dL (70-110)
[2024-07-13 20:33] LABS: Glucose Point of Care 216 mg/dL (70-110)
[2024-07-13] MEDS: insulin lispro 100 unit/1 mL SUBCUT (20:49)
[2024-07-13] MEDS: trazodone 100 mg Tablet PO (20:49)
[2024-07-14] VITALS (9 sets, daily range): BP systolic 104–122; BP diastolic 63–77; PULSE 65–96; RESP 14–18; TEMP 36.5–37.1; O2SAT 94–97; BMI 25.8
[2024-07-14] MEDS: buPROPion XL (24 HR) 150 mg Tablet PO (05:36)
[2024-07-14 07:07] LABS: Glucose Point of Care 197 mg/dL (70-110)
[2024-07-14] MEDS: insulin glargine 100 units/1 mL 15 UNIT SUBCUT (07:13)
[2024-07-14] MEDS: aspirin 81 mg EC Tablet PO (08:38)
[2024-07-14] MEDS: carvedilol 3.125 mg Tablet PO ×2 (08:38→17:14)
[2024-07-14] MEDS: insulin lispro 100 unit/1 mL SUBCUT ×3 (08:38→20:58)
[2024-07-14] MEDS: lisinopril 20 mg Tablet PO (08:38)
[2024-07-14] MEDS: BuSPIRONE 10 mg Tablet PO (08:38)
[2024-07-14] MEDS: isosorbide mononitrate ER 30 mg Tablet PO (08:38)
[2024-07-14 11:08] LABS: Glucose Point of Care 199 mg/dL (70-110)
--- NOTE | 2024-07-14 11:49 | PM.PN ---
Subjective Subjective: symptomaticallly better today, no chest pain, encouraged ambulation Medications: Reviewed: Yes Vitals/I&O/Wt Last Vital Signs Temp 98.8 F 07/14/24 11:40 Pulse 74 07/14/24 11:40 Resp 18 07/14/24 11:40 BP 111/63 07/14/24 11:40 Pulse Ox 94 07/14/24 11:40 O2 Del Method Room Air 07/14/24 11:40 O2 Flow Rate 0 07/13/24 19:32 FiO2 21 07/11/24 22:15 07/13/24 07/14/24 07/14/24 22:59 06:59 14:59 Intake Total 480 / 480 1640 / 1640 Output Total 730 / 730 750 / 1480 600 / 600 Balance -250 / -250 -750 / -1000 1040 / 1040 Weight last 48 hrs Weight 79.379 kg Weight 79.56 kg Physical Exam Narrative: General: No acute distress, AO x3 HEENT: PERRLA, pupils bilaterally equal and reactive, pallors not present Chest: Normal vesicular breath sounds, no added sounds, equal good air entry bilaterally CVS: S1-S2 regular, no murmurs, no tachycardia, no gallops, no rubs Abdomen: Soft, nontender, no organomegaly, bowel sounds present Neuro: No focal deficits, no facial deformity, AO x3, power 5/5 in all limbs Data 07/13/24 05:14 07/13/24 05:14 A&P Assessment and plan (1) Dyspnea on exertion: (2) Unstable angina: (3) 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: (4) Type 2 diabetes mellitus: 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 Diabetes mellitus complication status: without complication Qualified Code(s): E11.9 - Type 2 diabetes mellitus without complications (5) Hypertension: Qualifiers: Hypertension type: unspecified Qualified Code(s): I10 - Essential (primary) hypertension (6) Hyperlipidemia: (7) Dizziness: Plan 69-year-old gentleman with past medical history of CABG, diabetes and hypertension presents to the ER with dizziness and numbness getting worse over last 10 days associated with dyspnea on exertion worsening over last 10 days with occasional episodes of orthopnea and chest pain consistent with unstable angina. Unstable angina: History of CABG. Has not followed with cardiology since CABG. Check troponin cycled. Check echocardiogram. Will plan for Lexiscan stress test in AM. N.p.o. after midnight. Continue with aspirin, statin, beta-jerel. Check A1c, lipid panel. Shortness of breath: Dyspnea on exertion. Could be an angina equivalent. Cannot rule out mild congestive heart failure. Echocardiogram as above. Further treatment as per echocardiogram results. Will consult cardiology if Lexiscan stress test positive. Type 2 diabetes mellitus: Continue with home dose of Lantus. Sliding scale. Hold off on OHA. Hypertension: Goal blood pressure less than 140/90 MAG. Continue with home dose of Coreg and lisinopril for now. Uptitrate as needed. Dizziness/vertigo: Code stroke called in ER. Not a candidate for IV thrombolytics as per neurology. Appreciate recommendations. PT/OT/speech evaluation. Echocardiogram as above. Full code Cardiac carb consistent diet, n.p.o. after midnight. Heparin 5000 every 12 hourly for DVT prophylaxis. Protonix for PUD prophylaxis July 12, 2024 Stress test completed this morning was abnormal. Ischemia in all 3 coronary artery territories. LV systolic function reportedly normal. 3 times daily ratio of 1.2 likely patient accounting representative of multivessel coronary artery disease. Patient is planned cardiology evaluation today, possible angiogram. [facility] MRI July 13, 2024 MRI of the head with and without any acute ischemic stroke. Coronary angiogram completed today. Showing distal LAD 90% stenosis, proximal LAD 100% stenosis. LCx calcified tortuous ostial to proximal segment which is 95% stenotic. RCA highly calcified 100% vessel not grafted. [place] to LAD patent, SVG to diagonal chronically occluded, SVG to obtuse marginal chronically occluded. LVEF of 60%. Due to highly calcified nature of the proximal circumflex and tortuosity not amenable to intervention. Recommended medical management versus single-vessel redo CABG as outpatient. Will optimize medical management and observe over next 24 to 48 hours. July 15, 2023: Symptomatically feels better today, Added Imdur 30mg daily by cardiology. No active chest pain at this time. Encouraged ambulation. PRn meclizine addedd for dizziness. contineu ASA, lisinopril, coreg, optimizing cardiac medications, if remains stable, may be able to discharge next 24 hrs. 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
[2024-07-14 16:38] LABS: Glucose Point of Care 138 mg/dL (70-110)
[2024-07-14 20:12] LABS: Glucose Point of Care 194 mg/dL (70-110)
--- NOTE | 2024-07-14 22:32 | P.PN_ITS ---
Subjective 2 Subjective: Patient is worried about buspirone and trazodone he thinks that is causing him dizziness he would not like to take it but he told me he is on it for long. Time he says he still feels dizzy Medications: Reviewed: Yes Vitals/I&O/Wt Last Vital Signs Temp 98.3 F 07/14/24 19:35 Pulse 75 07/14/24 19:35 Resp 17 07/14/24 19:35 BP 111/74 07/14/24 19:35 Pulse Ox 95 07/14/24 19:35 O2 Del Method Room Air 07/14/24 19:35 O2 Flow Rate 0 07/13/24 19:32 FiO2 21 07/11/24 22:15 07/14/24 07/14/24 07/14/24 06:59 14:59 22:59 Intake Total 2120 / 2120 570 / 2690 Output Total 750 / 1480 1050 / 1050 550 / 1600 Balance -750 / -1000 1070 / 1070 20 / 1090 Weight last 48 hrs Weight 175 lb Weight 175 lb 6.4 oz Physical Exam 2 Const: COMMON NORMALS: alert HENMT: OTHER: GENERAL: Patient is alert, awake and oriented x3. HEART: Regular S1 and S2. No murmur, rub or gallop. LUNGS: Clear to auscultate bilaterally. CENTRAL NERVOUS SYSTEM: Grossly nonfocal. EXTREMITIES: Lower extremities with out edema bilaterally. Resp: COMMON NORMALS: clear to auscultation bilaterally AUSCULTATION: clear to auscultation bilaterally Neuro: SENSORIUM/ORIENTATION: Yes alert Data 07/13/24 05:14 07/13/24 05:14 A&P Assessment and plan (1) S/P triple vessel bypass: (2) Hypertension: Qualifiers: Hypertension type: unspecified Qualified Code(s): I10 - Essential (primary) hypertension (3) Hyperlipidemia: (4) Dyspnea on exertion: (5) Abnormal stress test: Plan Patient has multivessel coronary artery disease, he was noted to have occluded saphenous venous graft to obtuse marginal/circumflex and SVG to diagonal branch, [place] to LAD was patent, left ventricular ejection fraction is normal proximal mildly tortuous calcified circumflex is not amenable to intervention therefore medical management recommended continue aspirin statin lisinopril beta-jerel For dizziness does not appear to be from a cardiac origin, will leave decision of stopping buspirone trazodone to primary team PDMP PDMP Reviewed: Not Reviewed Attestations 2 Medical Necessity Statement*: As per medicine Coding Level of Care Code Acute Code for Chg Fwd Diagnoses S/P triple vessel bypass Z95.1 Hypertension, unspecified type I10 Hypertension type: unspecified Hyperlipidemia E78.5 Dyspnea on exertion R06.09 Abnormal stress test R94.39
[2024-07-15 03:22] VITALS: BP 117/71; PULSE 69; RESP 18; TEMP 36.4; O2SAT 96
[2024-07-15 05:03] LABS: Basophils % 0.3 %; Eosinophils # 0.3 10^3/uL (0.0-0.8); Hematocrit 45.6 % (37-53); Lymphocytes # 1.4 10^3/uL (0.8-4.8); Lymphocytes % 20.5 %; Mean Corpuscular HGB Conc 33.8 g/dL (30-55); Mean Corpuscular Hemoglobin 30.1 pg (27-33); Mean Corpuscular Volume 89.2 fl (82-101); Mean Platelet Volume 11.6 fL (7.4-10.4); Monocytes # 0.6 10^3/uL (0.2-0.9); Monocytes % 8.7 %; Neutrophils # 4.61 10^3/uL (1.8-7.7); Neutrophils % 66.1 %; Nucleated Red Blood Cells % 0 %; Platelet Count 139 10^3/cmm (157-399); Red Blood Count 5.11 10^6/uL (3.85-5.65); Red Cell Distribution Width 14.5 % (12.1-15.1); White Blood Count 6.98 10^3/uL (3.29-11.43)
[2024-07-15 05:22] LABS: Alanine Aminotransferase 29 U/L (0-41); Albumin Level 3.9 g/dL (3.5-5.2); Alkaline Phosphatase 54 U/L (40-130); Anion Gap 14.2 (5-19); Aspartate Amino Transferase 18 U/L (0-40); Blood Urea Nitrogen 14 mg/dL (8-23); Calcium 8.7 mg/dL (8.5-10.5); Carbon Dioxide 24 mmol/L (22-29); Chloride 101 mmol/L (98-107); Creatinine Clr Calc Pharmacy 80.5243; Globulin 2.5 g/dL (1.3-4.6); Glucose 133 mg/dL (65-115); Osmolality Calculated 282 mOsm/kg (285-295); Potassium 4.2 mmol/L (3.5-5.1); Sodium 135 mmol/L (136-145); Total Bilirubin 0.7 mg/dL (0.15-1.2); Total Protein 6.4 g/dL (6.6-8.7)
[2024-07-15 06:00] VITALS: PULSE 67
[2024-07-15] MEDS: insulin glargine 100 units/1 mL 15 UNIT SUBCUT (06:32)
[2024-07-15 06:33] LABS: Glucose Point of Care 156 mg/dL (70-110)
[2024-07-15 07:45] VITALS: BP 147/80; PULSE 75; RESP 16; TEMP 36.9; O2SAT 98
[2024-07-15] MEDS: isosorbide mononitrate ER 30 mg Tablet PO (08:31)
[2024-07-15] MEDS: lisinopril 20 mg Tablet PO (08:31)
[2024-07-15] MEDS: aspirin 81 mg EC Tablet PO (08:31)
[2024-07-15] MEDS: carvedilol 3.125 mg Tablet PO (08:31)
[2024-07-15] MEDS: insulin lispro 100 unit/1 mL SUBCUT (08:37)
[2024-07-15 11:44] VITALS: BP 147/80; PULSE 76; RESP 18; O2SAT 99
--- NOTE | 2024-07-15 11:46 | PC.NURSE ---
Patient discharged to home. Instruction provided regarding follow up information and medication changes. Patient verbalized complete understanding. Dr Craven in room with patient and family. Patient denies pain or needs. No distress observed. Patient taken by wheelchair to private vehicle.
[2024-07-15 12:09] LABS: Glucose Point of Care 168 mg/dL (70-110)
--- NOTE | 2024-07-15 15:00 | P.DS_ITS ---
Discharge Providers Date of Admission: 07/12/24 10:36 Date of Discharge: July 15, 2024 Attending Provider at Admission: Jovita Donahue MD Attending Provider at Discharge: Jovita Donahue MD Primary Care Provider: FLAKO Alejo Diagnoses at Discharge Discharge Diagnosis (1) S/P triple vessel bypass: Status: Acute Permanent problem details: 2016 (2) Hypertension: Status: Chronic Qualifiers: Hypertension type: unspecified Qualified Code(s): I10 - Essential (primary) hypertension (3) Hyperlipidemia: Status: Acute (4) Dyspnea on exertion: Status: Acute (5) Abnormal stress test: Status: Acute Reason for Visit Reason for Visit: Dizzy Hospital Course Hospital Course Cristiana Marinelli is a 69 year old male with past medical history of hypertension, CABG, type 2 diabetes mellitus presented to the ER with ongoing dizziness for 7- 10 days. he started feeling lightheaded along with tingling and numbness in his arms so he presented to the ER. At first code stroke was called and patient was evaluated by neurologist. Decision was made against IV thrombolytics. MRI of the head did not reveal any acute stroke. Patient also complained of increasing shortness of breath, worsened to the point where he was unable to walk more than 10 to 15 feet. He also complained of occasional orthopnea. Due to potentially cardiac cause of his symptoms, he underwent a cardiac stress test which showed abnormalities in distribution of all 3 coronary arteries. He underwent a coronary angiogram on July 13, 2024 where he was found to have distal LAD with 90% stenosis, LAD with proximal 100% stenosis. His LCx appeared to be bifurcating, calcified tortuous ostial to proximal segment showing 90 to 95% stenotic. RCA was 100% occluded, not grafted previously. [place] to LAD was patent. SVG to diagonal and obtuse marginal was chronically occluded. Overall due to highly calcified nature of the proximal circumflex and tortuosity it was not amenable to intervention. Medical management was recommended. Imdur was added to his existing home medications. Patient did not have any chest pain after addition of Imdur. He is instructed to follow-up with cardiology as scheduled. If medical management fails to resolve his symptoms he may need a single-vessel redo CABG. Cause of his dizziness was not afferent. Though the dizziness improved, he did not feel 100% improved. Trial of meclizine was added at the time of discharge. Patient is instructed to follow-up with neurology as an outpatient should his symptoms persist. Patient thinks that his dizziness started shortly after addition of trazodone buspirone and Wellbutrin. He has discontinued the trazodone. Instructed to discuss with his primary care provider regarding tapering off buspirone and Wellbutrin if desired and not to discontinue both medications cold turkey. Potentially tramadol may be contributing to the dizziness and this has been discontinued at time of discharge. This documentation was created by [employer] laboratory operations coordinator software. Every effort was made to ensure accuracy of laboratory operations coordinator. Any obvious errors or omissions should be clarified with the author of the document. Physical Exam Narrative: General: No acute distress, AO x3 HEENT: PERRLA, pupils bilaterally equal and reactive, pallors not present Chest: Normal vesicular breath sounds, no added sounds, equal good air entry bilaterally CVS: S1-S2 regular, no murmurs, no tachycardia, no gallops, no rubs Abdomen: Soft, nontender, no organomegaly, bowel sounds present Neuro: No focal deficits, no facial deformity, AO x3, power 5/5 in all limbs Discharge Data Studies Completed and Pending Completed Studies During Hospitalization Category Date Time Status CT head thrombolytic 07285 Stat Cat Scan 07/11/24 12:53 Completed CTA head neck [CT angio headneck* [id number]/[id number]] Stat Cat Scan 07/11/24 12:58 Completed CXRP [XR chest 1V portable [id number]] Stat Exams 07/11/24 13:24 Completed Cardiac Stress Test MIBI [Sestamibi Stress Test Request Exams 07/11/24 18:45 Draft ] Routine MR head wo con* [id number] Routine MRI 07/12/24 17:58 Completed NM mj perf SPECT r/s* [id number] Routine Nuc Med 07/12/24 18:46 Completed Pending at discharge Category Date Time Status BAR HOST/HOSTESS request for service Routine Exams 07/13/24 13:00 Taken CV. echo complete* [id number] Routine Ultrasound 07/11/24 18:45 Taken Radiology Impressions Head CT 07/11/24 12:53 IMPRESSION: 1. No acute intracranial hemorrhage or edema. 2. Mild cerebral atrophy and small vessel disease. 3. Air-fluid levels in the RIGHT maxillary sinus and bilaterally in the sphenoid sinuses. Acute sinusitis. 4. Moderate calcified plaque in the intracranial carotid arteries and distal vertebral arteries. Head/Neck CTA 07/11/24 12:58 IMPRESSION: 1. RIGHT cervical ICA stenosis 58% by measurement. Visually the stenosis appears just slightly greater. 2. Less than 50% stenosis LEFT cervical ICA. 3. No occlusion or thrombus within the [place]. No aneurysm. 4. Intracranial carotid artery stenosis near 50% through the cavernous sinuses. 5. No vertebral artery dissection or occlusion. Chest X-Ray 07/11/24 13:24 IMPRESSION: Diffuse bilateral interstitial pulmonary prominence may all be fibrosis, but some or all of this could be pulmonary edema and/or pneumonitis, possibly superimposed upon fibrosis. Unclear if this has changed. Head MRI 07/12/24 17:58 IMPRESSION: 1. No evidence of restricted diffusion to suggest acute ischemia. 2. Mild small vessel changes and mild parenchymal volume loss. 3. Small vessel changes in the [place]. 4. RIGHT maxillary and sphenoid sinusitis. 5. No hemosiderin on susceptibility weighted images. 6. No other suspicious findings. Laboratory Results WBC 6.98 10^3/uL (3.29-11.43) 07/15/24 04:26 RBC 5.11 10^6/uL (3.85-5.65) 07/15/24 04:26 Hgb 15.40 g/dL (11.27-16.99) 07/15/24 04:26 Hct 45.6 % (37-53) 07/15/24 04:26 MCV 89.2 fl (82-101) 07/15/24 04:26 MCH 30.1 pg (27-33) 07/15/24 04:26 MCHC 33.8 g/dL (30-55) 07/15/24 04:26 RDW 14.5 % (12.1-15.1) 07/15/24 04:26 Plt Count 139 10^3/cmm (157-399) L 07/15/24 04:26 MPV 11.6 fL (7.4-10.4) H 07/15/24 04:26 Neut % (Auto) 66.1 % 07/15/24 04:26 Lymph % (Auto) 20.5 % 07/15/24 04:26 [place] % (Auto) 8.7 % 07/15/24 04:26 Eos % (Auto) 4.0 % 07/15/24 04:26 Baso % (Auto) 0.3 % 07/15/24 04:26 Neut # (Auto) 4.61 10^3/uL (1.8-7.7) 07/15/24 04:26 Lymph # (Auto) 1.4 10^3/uL (0.8-4.8) 07/15/24 04:26 [place] # (Auto) 0.6 10^3/uL (0.2-0.9) 07/15/24 04:26 Eos # (Auto) 0.3 10^3/uL (0.0-0.8) 07/15/24 04:26 Baso # (Auto) 0.0 10^3/uL (0.0-0.1) 07/15/24 04: Nucleated RBC % (auto) 0 % 07/15/24 04: Nucleated RBCs # 0.0 /100WBC 07/15/24 04: PT 12.60 SECONDS (12.1-14.9) 07/11/24 14:24 INR 0.89 (0.8-1.2) 07/11/24 14:24 APTT 27.5 SECONDS (23.9-36.7) 07/11/24 14:24 Sodium 135 mmol/L (136-145) L 07/15/24 04:26 Potassium 4.2 mmol/L (3.5-5.1) 07/15/24 04: Chloride 101 mmol/L (98-107) 07/15/24 04:26 Carbon Dioxide 24 mmol/L (22-29) 07/15/24 04:26 Anion Gap 14.2 (5-19) 07/15/24 04:26 BUN 14 mg/dL (8-23) 07/15/24 04:26 Creatinine 0.9 mg/dL (0.7-1.2) 07/15/24 04:26 GFR Calculation Not Reportable 07/15/24 04:26 Glucose 133 mg/dL (65-115) H 07/15/24 04:26 POC Glucose 168 mg/dL (70-110) H 07/15/24 11:39 Calculated Osmolality 282 mOsm/kg (285-295) L 07/15/24 04:26 Calcium 8.7 mg/dL (8.5-10.5) 07/15/24 04:26 Total Bilirubin 0.7 mg/dL (0.15-1.2) 07/15/24 04:26 AST 18 U/L (0-40) 07/15/24 04:26 ALT 29 U/L (0-41) 07/15/24 04:26 Alkaline Phosphatase 54 U/L (40-130) 07/15/24 04:26 Troponin T Baseline 11 ng/L (0-15) 07/11/24 14:24 Troponin T 120 Minute 11.64 ng/L (0-15) 07/11/24 15:09 Delta Troponin T 0.64 ABS# (0-10) 07/11/24 15:09 Troponin T Hi Sens 6Hr 10.07 ng/L (0-15) 07/11/24 18:58 Troponin T Hi Sens 6Hr Delta -0.93 ng/L (0-12) L 07/11/24 18:58 NT-Pro-B Natriuret Pep 189 pg/mL (0-125) H 07/11/24 14:24 Total Protein 6.4 g/dL (6.6-8.7) L 07/15/24 04:26 Albumin 3.9 g/dL (3.5-5.2) 07/15/24 04:26 Globulin 2.5 g/dL (1.3-4.6) 07/15/24 04:26 Urine Color Yellow (Yellow) 07/11/24 13:20 Urine Appearance Clear (CLEAR) 07/11/24 13:20 Urine pH 6.5 (5-7) 07/11/24 13:20 Ur Specific [place] 1.005 (1.005-1.030) 07/11/24 13:20 Urine Protein Neg (Negative) 07/11/24 13:20 Urine Glucose (UA) Norm (Normal) 07/11/24 13:20 Urine Ketones Negative (Negative) 07/11/24 13:20 Urine Blood Neg (Negative) 07/11/24 13:20 Urine Nitrate Negative (Negative) 07/11/24 13:20 Urine Bilirubin Neg (Negative) 07/11/24 13:20 Urine Urobilinogen Norm mg/dL (Negative) 07/11/24 13:20 Ur Leukocyte Esterase Negative (Negative) 07/11/24 13:20 Urine RBC 0-2 /hpf (0-2) 07/11/24 13:20 Urine WBC 0-5 /hpf (0-5) 07/11/24 13:20 Ur Squamous Epith Cells 0-5 /hpf (0-5) 07/11/24 13:20 Amorphous Sediment Not Reportable 07/11/24 13:20 Urine Bacteria None seen /hpf (NONE) 07/11/24 13:20 Hyaline Casts 0-4 /lpf H 07/11/24 13:20 Urine Opiates Screen Negative ng/mL (Negative) 07/11/24 13:20 Ur Barbiturates Screen Negative ng/mL (Negative) 07/11/24 13:20 Ur Phencyclidine Scrn Negative ng/mL (Negative) 07/11/24 13:20 Ur Amphetamines Screen Negative ng/mL (Negative) 07/11/24 13:20 U Benzodiazepines Scrn Negative ng/mL (Negative) 07/11/24 13:20 Urine Cocaine Screen Negative ng/mL (Negative) 07/11/24 13:20 U Marijuana (THC) Screen Negative ng/mL (Negative) 07/11/24 13:20 Vitals Last Vital Signs Temp 98.4 F 07/15/24 07:45 Pulse 76 07/15/24 11:44 Resp 18 07/15/24 11:44 BP 147/80 07/15/24 11:44 Pulse Ox 99 07/15/24 11:44 O2 Del Method Room Air 07/15/24 07:45 O2 Flow Rate 0 07/13/24 19:32 FiO2 21 07/11/24 22:15 Discharge Plan Discharge Patient Disposition: Home Condition: Stable Prescriptions: New isosorbide mononitrate 30 mg Tablet Extended Release 24 Hr 30 mg PO BREAKFAST 30 Days Qty: 30 0RF meclizine 25 mg Tablet 25 mg PO TID PRN (Reason: Dizziness) 15 Days Qty: 45 0RF Continued aspirin [Adult Aspirin Regimen] 81 mg tablet,delayed release (DR/EC) 81 mg PO DAILY (DME) lancets Misc See Rx Instructions .MEDSUPPLY Qty: 200 12RF Rx Instructions: Use as directed to prick skin for blood sugar checks daily (DME) blood-glucose meter Misc See Rx Instructions .MEDSUPPLY Qty: 1 0RF Rx Instructions: Use as directed for checking blood sugar daily (DME) Blood Glucose Test Strip See Rx Instructions .MEDSUPPLY Qty: 200 12RF Rx Instructions: Use as directed with glucometer to check blood sugar TWICE DAILY *E11.65* bupropion HCl [Wellbutrin XL] 150 mg tablet extended release 24 hr 150 mg PO QAM Qty: 30 0RF (DME) Blood Glucose Test Strip See Rx Instructions .ROUTE .MEDSUPPLY Qty: 50 6RF Rx Instructions: To test 1 time per day (DME) C-PAP with auto titrate 5-12 cm water pressure See Rx Instructions .Route .MEDSUPPLY Qty: 1 0RF Rx Instructions: As directed (DME) blood-glucose meter [Blood Glucose Monitoring] Kit See Rx Instructions .ROUTE .MEDSUPPLY Qty: 1 0RF Rx Instructions: To test 1 x per day (DME) lancets 31 gauge misc See Rx Instructions .ROUTE .MEDSUPPLY Qty: 100 3RF Rx Instructions: to test 2 times per day (DME) pen needle, diabetic [Pen Needle] 31 gauge x 5/16 needle See Rx Instructions miscellaneous .MEDSUPPLY Qty: 100 0RF Rx Instructions: As directed, one time daily with Lantus nitroglycerin 0.4 mg tablet, sublingual See Rx Instructions .ROUTE .COMPLEX Rx Instructions: Take 0.4 mg sublingually every 5 minutes as needed for chest pain, do not exceed 3 doses per episode. insulin glargine [Lantus U-100 Insulin] 100 unit/mL solution 15 unit SUBCUT QAM lisinopril 20 mg tablet 20 mg PO DAILY carvedilol 3.125 mg tablet 3.125 mg PO BID trazodone 100 mg tablet 100 mg PO BEDTIME buspirone 10 mg tablet 10 mg PO BID glimepiride 4 mg tablet 4 mg PO BID montelukast 10 mg tablet 10 mg PO DAILY Januvia 100 mg tablet 100 mg PO DAILY Discontinued tramadol 50 mg tablet 50 mg PO TID PRN (Reason: pain) Qty: 90 0RF Discharge Orders: Discharge Order (Routine); Ordered 07/15/24 Ordered By: Jovita Donahue Referrals: Violet Noel, GENERAL LITHOGRAPHIC WORKER [Primary Care Provider] - 4-7 days (We have notified your physician's clinic of the need for a follow-up appointment to be scheduled. If you have not heard from them within the next 2 business days, please call them d irectly. ) Rianna Mathur FNP [Nurse Practitioner] - 08/07/24 8:30 am Apollo Mercedes MD [Physician] - (hospital discharge follow up ) Discharge Diet: Usual diet Discharge Activity: Resume usual activity Patient Instructions: Meclizine (By mouth) (Antivert, Antivert/25, Antivert/50, Motion..., Isosorbide Mononitrate (By mouth) (Imdur, Imdur ER, Ismo), Heart Catheterization (DC), Opioid Safety, Post Angiogram Home Care Instructions Discharge Attestations Time Spent in Discharge Care*: greater than 30 min Quality Metrics Clinical Quality Measures [ No reported AMI, CVA or VTE this stay] Coding Level of Care Code Acute Code for Chg Fwd Diagnoses S/P triple vessel bypass Z95.1 Hypertension, unspecified type I10 Hypertension type: unspecified Hyperlipidemia E78.5 Dyspnea on exertion R06.09 Abnormal stress test R94.39
== END 2024-07-15 11:46 | disposition home or self-care (01) | DRG 287 ==
LOC: ER 17:51 → MEDSURG 18:38 → CSU 07-13 15:23
PROVIDERS: Internal Medicine Cardiovascular Disease; Nurse Practitioner Family; Admitting Provider Student in an Organized Health Care Education/Training Program; Emergency Provider Emergency Medicine; PCP Nurse Practitioner Family; Visit Provider Student in an Organized Health Care Education/Training Program
PROC: 4A023N7 Measurement of Cardiac Sampling and Pressure, Left Heart, Percutaneous Approach (ICD-10-PCS; principal; 2024-07-13 14:00)
DX: I25.110 Atherosclerotic heart disease of native coronary artery with unstable angina pectoris (principal); I25.710 Atherosclerosis of autologous vein coronary artery bypass graft(s) with unstable angina pectoris; I25.82 Chronic total occlusion of coronary artery; R42 Dizziness and giddiness; E78.5 Hyperlipidemia, unspecified; K76.0 Fatty (change of) liver, not elsewhere classified; E55.9 Vitamin D deficiency, unspecified; M16.12 Unilateral primary osteoarthritis, left hip; G47.33 Obstructive sleep apnea (adult) (pediatric); I10 Essential (primary) hypertension; E11.9 Type 2 diabetes mellitus without complications; F17.210 Nicotine dependence, cigarettes, uncomplicated; J01.90 Acute sinusitis, unspecified; R94.39 Abnormal result of other cardiovascular function study; Z79.82 Long term (current) use of aspirin; Z79.4 Long term (current) use of insulin; Z79.84 Long term (current) use of oral hypoglycemic drugs; Z85.820 Personal history of malignant melanoma of skin; Z95.1 Presence of aortocoronary bypass graft
CPT/HCPCS: 36415; 36416; 70450; 70496; 70498; 70551; 71045; 78452; 80048; 80053; 80306; 81001; 82962; 83880; 84484; 85025; 85610; 85730; 93005; 93017; 93306; 93459; 94660; 96372; 96374; 96375; 96376; 99152; 99153; 99285; A9500; C1760; C1769; C1887; C1894; G0269; G0378; J1644; J1815; J2250; J2405; J2785; J3010; J3490; J7030; J8597; J9999; Q0163; Q9967

== ENCOUNTER → 2024-08-07 07:36 | Outpatient (BNVA) | payer MEDICARE, SELFPAY | PROVIDERS: PCP Nurse Practitioner Family; Visit Provider Nurse Practitioner Family | DX: I25.719 Atherosclerosis of autologous vein coronary artery bypass graft(s) with unspecified angina pectoris (principal); I10 Essential (primary) hypertension; E11.9 Type 2 diabetes mellitus without complications; R06.09 Other forms of dyspnea; R42 Dizziness and giddiness; Z87.891 Personal history of nicotine dependence; Z79.4 Long term (current) use of insulin | CPT/HCPCS: 99214 ==

== ENCOUNTER 2024-08-30 14:24 | Outpatient (CLI) | payer MEDICARE, SELFPAY ==
--- NOTE | 2024-08-30 14:32 | XR_ITS ---
WS: [id number] Bilateral lower extremity leg length, 08/30/2024 Clinical Data: lower limb leg difference and pain in feet/legs Comparison: None. Findings: Right femur measures from the superior aspect of the right femoral head to the medial femoral condyle 50.0 cm. The left femur measures from the superior aspect of the left arthroplasty femoral head to the medial femoral condyle 51.0 cm. The right tibia measures from the medial tibial plateau to the tibial plafond 38.7 cm. The left tibia measures from the medial tibial plateau to the tibial plafond 38.5 cm. XR/XR bone length study [id number] Impression: 1. Right femoral length 50.0 cm. 2. Left femoral length 51.0 cm. 3. Right tibial length 38.7 cm. 4. Left tibial length 38.5 cm.
== END 2024-08-30 14:25 | disposition home or self-care (01) ==
LOC: RAD 14:26
PROVIDERS: PCP Nurse Practitioner Family; Visit Provider Podiatrist Foot & Ankle Surgery
DX: M21.70 Unequal limb length (acquired), unspecified site (principal)
CPT/HCPCS: 77073; 99203

== ENCOUNTER → 2024-09-10 11:23 | Outpatient (BNVA) | payer MEDICARE, SELFPAY | PROVIDERS: PCP Nurse Practitioner Family; Visit Provider Nurse Practitioner Family | DX: E11.9 Type 2 diabetes mellitus without complications (principal); M25.511 Pain in right shoulder; M25.512 Pain in left shoulder; E55.9 Vitamin D deficiency, unspecified; R49.0 Dysphonia | CPT/HCPCS: 80053; 80061; 82306; 82607; 83036; 83721; 84443; 85025; 85651; 86038; 86140; 86431 ==

== ENCOUNTER 2024-09-19 07:10 | Outpatient (CLI) | payer MEDICARE, SELFPAY ==
--- NOTE | 2024-09-19 07:30 | CT_ITS ---
WS: [id number] CT NECK WITH CONTRAST HISTORY: R49.0 - Dysphonia, tightness anterior neck. History of melanoma. TECHNIQUE: Contiguous 2 mm axial images are performed through the neck with intravenous contrast. Sagittal and coronal reformats are also submitted. All CT scans at [facility] use at least one of these dose optimization techniques: automated exposure control; mA and/or kV adjustment per patient size (includes targeted exams where dose is matched to clinical indication); or iterative reconstruction. CONTRAST: CONTRAST: Omnipaque 350; 100 mL IV. DLP: 176.59 mGy.cm COMPARISON: 02/18/2023 Marker is placed along the inferior LEFT neck at the site of the palpable mass. Marker is placed close to the marker also placed on 02/18/2023. Marker indicates sternoclavicular joint arthritis with synovitis greatest on the LEFT. The adjacent sternocleidomastoid muscle is normal. No additional abnormality noted at this location. Nasopharynx, oropharynx, hypopharynx and larynx are unremarkable. No soft tissue masses or abnormal enhancement. There is narrowing of the larynx and coaptation of the vocal cords which is probably due to Valsalva during the CT imaging. Torus tubarius and fossa of [place] and parapharyngeal fat are normal. No significant lymphadenopathy is identified. Thyroid gland and salivary glands are normally enhancing with no masses. Degenerative disc disease. Bilateral facet joint arthritis. Most severe facet joint arthropathy in the upper cervical spine at C3-4 and C4-5. Visualized portions of the skull base demonstrate no abnormalities. Orbits and globes are within normal limits. No soft tissue masses. Visualized paranasal sinuses and mastoid air cells are normal. Bilateral upper lobe emphysema. Atherosclerosis within the visualized aortic arch. Plaque extends into the great vessels. Circumferential calcified plaque at the cervical carotid bifurcations. Prior CABG. CT/CT neck w con* [id number] IMPRESSION: 1. No pathologically enlarged cervical chain lymph nodes. 2. Marker along the inferior LEFT neck corresponds to advanced degenerative ch anges at the LEFT SC joint with synovitis. Similar to the prior study of 2022. 3. No hypopharyngeal or laryngeal mass identified. There is narrowing of the l aryngeal airway which is probably due to Valsalva during the CT acquisition. If patient is having stridor further evaluation by ENT would be of benefit. 4. Advanced facet joint arthropathy at C3-4 and C4-5.
[2024-09-19] MEDS: iohexol 350 mg/mL 500 mL Btl (per mL) IV (07:41)
== END 2024-09-19 07:11 | disposition home or self-care (01) ==
PROVIDERS: PCP Nurse Practitioner Family; Visit Provider Nurse Practitioner Family
DX: M47.812 Spondylosis without myelopathy or radiculopathy, cervical region (principal); R49.0 Dysphonia; Z85.820 Personal history of malignant melanoma of skin
CPT/HCPCS: 70491

== ENCOUNTER → 2024-10-04 13:41 | Outpatient (BNVA) | payer MEDICARE, SELFPAY | PROVIDERS: PCP Nurse Practitioner Family; Visit Provider Nurse Practitioner Family | DX: D22.5 Melanocytic nevi of trunk (principal); L81.4 Other melanin hyperpigmentation; L57.8 Other skin changes due to chronic exposure to nonionizing radiation; Z08 Encounter for follow-up examination after completed treatment for malignant neoplasm; Z85.820 Personal history of malignant melanoma of skin; L82.0 Inflamed seborrheic keratosis; R20.8 Other disturbances of skin sensation; L53.8 Other specified erythematous conditions; Z78.9 Other specified health status; B07.8 Other viral warts; L29.89 Other pruritus; L57.0 Actinic keratosis | CPT/HCPCS: 17000; 17110; 99213 ==

== ENCOUNTER → 2024-10-10 13:01 | Outpatient (BNVA) | payer MEDICARE, SELFPAY | PROVIDERS: PCP Nurse Practitioner Family; Visit Provider Internal Medicine Cardiovascular Disease | DX: I25.10 Atherosclerotic heart disease of native coronary artery without angina pectoris (principal); E78.5 Hyperlipidemia, unspecified; I10 Essential (primary) hypertension; E78.1 Pure hyperglyceridemia; M19.09 Primary osteoarthritis, other specified site | CPT/HCPCS: 99214 ==

== ENCOUNTER → 2024-10-16 12:37 | Outpatient (BNVA) | payer MEDICARE, SELFPAY | PROVIDERS: PCP Nurse Practitioner Family; Visit Provider Nurse Practitioner Family | DX: E78.5 Hyperlipidemia, unspecified (principal); I10 Essential (primary) hypertension | CPT/HCPCS: 80053; 80061; 85025 ==

== ENCOUNTER → 2024-11-01 14:04 | Outpatient (BNVA) | payer MEDICARE, SELFPAY | PROVIDERS: PCP Nurse Practitioner Family; Visit Provider Podiatrist Foot & Ankle Surgery | DX: E11.42 Type 2 diabetes mellitus with diabetic polyneuropathy (principal); L60.3 Nail dystrophy; Z79.4 Long term (current) use of insulin; G62.9 Polyneuropathy, unspecified; M21.70 Unequal limb length (acquired), unspecified site; M20.41 Other hammer toe(s) (acquired), right foot; M20.42 Other hammer toe(s) (acquired), left foot | CPT/HCPCS: 11721 ==

== ENCOUNTER → 2025-01-08 15:18 | Outpatient (BNVA) | payer MEDICARE, SELFPAY | PROVIDERS: PCP Nurse Practitioner Family; Visit Provider Nurse Practitioner Family | DX: L23.89 Allergic contact dermatitis due to other agents (principal); L72.0 Epidermal cyst; L82.1 Other seborrheic keratosis; L57.8 Other skin changes due to chronic exposure to nonionizing radiation; L81.4 Other melanin hyperpigmentation; D22.5 Melanocytic nevi of trunk; Z08 Encounter for follow-up examination after completed treatment for malignant neoplasm; Z85.820 Personal history of malignant melanoma of skin | CPT/HCPCS: 99214 ==

== ENCOUNTER → 2025-01-10 12:47 | Outpatient (BNVA) | payer MEDICARE, SELFPAY | PROVIDERS: PCP Nurse Practitioner Family; Visit Provider Nurse Practitioner Family | DX: E55.9 Vitamin D deficiency, unspecified (principal); E11.9 Type 2 diabetes mellitus without complications; I10 Essential (primary) hypertension | CPT/HCPCS: 80053; 80061; 82306; 83036; 85025 ==

== ENCOUNTER → 2025-01-16 11:25 | Outpatient (BNVA) | payer MEDICARE, SELFPAY | PROVIDERS: PCP Nurse Practitioner Family; Visit Provider Podiatrist Foot & Ankle Surgery | DX: E11.42 Type 2 diabetes mellitus with diabetic polyneuropathy (principal); L60.3 Nail dystrophy; L84 Corns and callosities; E11.8 Type 2 diabetes mellitus with unspecified complications; G62.9 Polyneuropathy, unspecified; M21.70 Unequal limb length (acquired), unspecified site; M20.41 Other hammer toe(s) (acquired), right foot; M20.42 Other hammer toe(s) (acquired), left foot; Z79.4 Long term (current) use of insulin | CPT/HCPCS: 11056; 11721 ==